=== PATIENT | male | born 2000 | race Caucasian/White ===

== ENCOUNTER 2019-10-07 15:36 | Emergency (ER) | payer MEDICAID, SELFPAY ==
[2019-10-07 15:40] VITALS: BP 134/67; PULSE 86; TEMP 36.7; O2SAT 99
--- NOTE | 2019-10-07 15:47 | ED.GENADUL_ITS ---
Discharge Plan Disposition Patient Disposition: HOME Condition: Stable Discharge Details Chief Complaint: Sorethroat Clinical Impression: Pharyngitis Primary Care Provider: Alex Downey ED Provider: Vitaliy Jernigan Home Meds and New Rx's Prescriptions: New amoxicillin-pot clavulanate [Augmentin] 875-125 mg tablet 1 tab PO BID Qty: 14 RF: 0 Discharge Instructions Instructions: Pharyngitis (ED) Additional Instructions: if symptoms persist next week follow up with your primary care provider if you have severe worsening pain, inability to swallow liquids or difficulty breathing return to the emergency department Medical Decision Making 19 yo male comes in with right posterior pharynx pain without dyspnea or difficulty swallowing for 3 days. Denies fevers, has had chills. HE denies rashes, vomit, headaches. Has no submandibular swelling, midline uvula, no pain over hyoid or restricted neck movements, no findings to suggest rpa, canal boat captain, or epiglotitis. His left tonsil is normal but right tonsil is erythematous with exudates. Negative strep, but given findings will tx for bacterial pharyngitis. Advised f/u with pcp and return precautions given Differential Diagnosis Differential Diagnosis: strep pharyngitis, viral pharyngitis, rpa, canal boat captain, epiglotitis HPI General Mode of arrival: ambulatory . Date/Time Provider Initiated Documentation: 10/07/19 15:43 . Limitations to Documentation: no limitations . Information obtained by: patient . History of Present Illness 19 year old M presents to the emergency department with the chief complaint of sore throat, Patient started experiencing this day(s) (3) and it has been constant. No relieving factors improve symptom(s), No exacerbating factors reported . Related Data Home Medications Medication Instructions Recorded Confirmed amoxicillin-pot clavulanate 1 tab PO BID #14 tab 10/07/19 [Augmentin] Previous Rx's Medication Instructions Recorded amoxicillin-pot clavulanate 1 tab PO BID #14 tab 10/07/19 [Augmentin] Allergies Allergy/AdvReac Type Severity Reaction Status Date / Time No Known Allergies Allergy Unverified 10/07/19 15:44 General Stated Complaint: Sorethroat LINDA: 4 Review of Systems All systems reviewed & are unremarkable except as noted in HPI and below Constitutional Constitutional: Denies weakness ENT Ears, Nose, Mouth, and Throat: Denies change in voice Cardiovascular Cardiovascular: Denies chest pain and Denies dyspnea Respiratory Respiratory: Denies cough and Denies dyspnea Gastrointestinal Gastrointestinal: Denies nausea and Denies vomiting Genitourinary Genitourinary: Denies dysuria Musculoskeletal Musculoskeletal: Denies joint swelling Integumentary/Breasts Skin/Breast: Denies rash Neurologic Neurologic: Denies weakness Endocrine Endocrine: Denies cold intolerance and Denies heat intolerance [facility] Medical History (Updated 10/07/19 @ 16:05 by Vitaliy Jernigan MD) Fracture of left upper extremity age 3 Strabismus Family History Mother Substance abuse Healthy adult Mental disorder Father Substance abuse Healthy adult GRANDPARENT Substance abuse Essential hypertension Hyperlipidemia Social History Smoking/Tobacco Use Status: Never Alcohol Intake: never Drug use: Never Substance use type: does not use Do you feel safe at home: Yes Do you feel safe in your relationship?: Yes Exam Const General: no acute distress Orientation: alert HENMT Head: normal to inspection Ears: external ears normal General nose exam: external nose normal Mouth: moist mucous membranes Eyes General: appearance normal, both eyes and all related structures Neck Neck: normal visual inspection Resp Effort & Inspection: normal respiratory effort and able to speak in complete sentences Cardio Rate: regular rate Skin General skin exam: no rashes or lesions noted Neuro General: alert and oriented x3 Extrem General: normal to inspection Psych Mental Status: mental status grossly normal Course Vital Signs Vital signs: Vital Signs Temperature 36.7 C 10/07/19 15:40 Pulse 86 10/07/19 15:40 Blood Pressure 134/67 10/07/19 15:40 Pulse Oximetry 99 10/07/19 15:40 Temperature 36.7 C 10/07/19 15:40 Pulse 86 10/07/19 15:40 Respiratory Effort Non-Labored 10/07/19 15:43 Blood Pressure 134/67 10/07/19 15:40 Blood Pressure Position Sitting 10/07/19 15:40 Pulse Oximetry 99 10/07/19 15:40 Oxygen Delivery Method Room Air 10/07/19 15:40 Oxygen Flow Rate 0 10/07/19 15:40 Pain Level 7 10/07/19 15:40
== END 2019-10-07 16:13 | disposition home or self-care (01) ==
LOC: ER 16:14
PROVIDERS: Emergency Provider Emergency Medicine; PCP Family Medicine
DX: J02.0 Streptococcal pharyngitis (principal)
CPT/HCPCS: 87880; 99282; 87081; 99283

== ENCOUNTER 2021-03-05 20:31 | Emergency (ER) | payer MEDICAID, SELFPAY ==
[2021-03-05 20:36] VITALS: BP 133/77; PULSE 115; RESP 18; TEMP 36.6; O2SAT 100
[2021-03-05 20:48] VITALS: TEMP 39.5
--- NOTE | 2021-03-05 20:48 | ED.GENADUL_ITS ---
Discharge Plan Disposition Patient Disposition: HOME Condition: Improving Discharge Details Clinical Impression: Fever, Brain lesion Primary Care Provider: Alex Downey ED Provider: Ashleigh Tinsley Home Meds and New Rx's Prescriptions: No Action sertraline 100 mg tablet 150 mg PO DAILY RF: 0 Discharge Instructions Instructions: Fever in Adults (ED) Additional Instructions: Follow up with primary care provider in 3-5 days. Return to ED sooner if any worsening or concerns. Increase oral fluids. Please take Tylenol or Ibuprofen with food every 4-6 hours as needed for pain and swelling. Today's a CT of your head shows an extra axial cystic lesion along the left frontal lobe. This has probably been there for a long time. No bleeding noted on the CTs.. Please return to the ER or be seen sooner for any worsening, vomiting, inability to move your head or unable to keep the fever down with Tylenol and ibuprofen. We did add a Lyme and tick panel onto your labs which is pending at this time. Please have your primary care provider follow-up with this Referrals: Alex Downey [Primary Care Provider] - Sintia Shirley MD [ [facility] STAFF PHYSICIAN] - 2 weeks (Extra-axial Cystic lesion left Frontal convexity questionable arachnoid cyst) Discharge Data Discharge Date/Time-TO BE ENTERED AT DEPARTURE: 03/06/21 01:00 Medical Decision Making 20-year-old male presents the ER chief complaint of fever which began 48?72 hours ago. He reports having a thermometer at home did not take temperature but does endorse myalgias and chills. He also states he has gotten posterior neck tenderness when flexing the neck. Mild bilateral ear tenderness and some anterior cervical lymphadenopathy, posterior oropharynx slightly erythemic no exudate noted. He also reports some mild dysuria. Negative abdominal pain no nausea vomiting. Last took 800 mg ibuprofen at approximately noon today. Only past medical history is depression he takes sertraline for. At this time work-up ordered including CBC, CMP, lactate, urinalysis, blood cultures x2. Strep throat Covid test. Differential diagnosis includes but not limited to strep throat, COVID-19, pharyngitis, meningitis, UTI No leukocytosis, lactate is 2.1 CMP is largely within normal limits, glucose 128 urinalysis shows 15 ketones 1.0 urobilinogen no evidence for UTI Covid is negative. Lyme panel added on and strep swab is pending at this time. 2310: Spoke with mri technician regarding head CT there is a left frontal abnormality a a CTA to further evaluate was added on to existing exam while patient is over in radiology at this time. No documentation noting a previous head injury. Patient does have a right lazy eye noted on exam. Attempted to call mother no answer, father is at bedside. I did discuss the CT findings with patient and father who verbalized understanding they were not aware that there was a cystic type lesion noted. Patient reports feeling better is hemodynamically stable. At this time no source found for patient's fever and symptoms. ER attending Dr. Jernigan was able to eval patient at my request for possible need for lumbar puncture. At this time patient has no nuchal rigidity and is moving head without difficulty lumbar puncture not performed at this time. Plan is to have patient follow-up with outpatient neurology Dr. Shirley regarding CT findings. Discussed return instructions, verbalized understanding. This text was generated using [employer] dictation system, please disregard any oddities of phrase or misspellings. HPI General Mode of arrival: ambulatory . Date/Time Provider Initiated Documentation: 03/05/21 20:39 . Limitations to Documentation: no limitations . Information obtained by: patient . HPI Narrative: 20-year-old male presents the ER chief complaint of fever which began 48?72 hours ago. He reports having a thermometer at home did not take temperature but does endorse myalgias and chills. He also states he has gotten posterior neck tenderness when flexing the neck. Mild bilateral ear tenderness and some anterior cervical lymphadenopathy, posterior oropharynx slightly erythemic no exudate noted. He also reports some mild dysuria. Negative abdominal pain no nausea vomiting. Last took 800 mg ibuprofen at approximately noon today. Only past medical history is depression he takes sertraline for. Related Data Home Medications Medication Instructions Recorded Confirmed sertraline 150 mg PO DAILY 03/05/21 03/05/21 Allergies Allergy/AdvReac Type Severity Reaction Status Date / Time No Known Allergies Allergy Unverified 03/05/21 20:40 General Stated Complaint: Fever LINDA: 3 Review of Systems Narrative: Constitutional: Negative for weight loss, alert and oriented, well groomed, normal body habitus, appears uncomfortable. HEENT: Denies trauma, blurry vision, nasal discharge, sore throat, trouble swallowing. Positive posterior headache posterior neck tenderness with neck flexion Chest: Denies chest pain, palpitations, irregular rhythm, hypertension. Respiratory: Denies Shortness of breath, cough, hemoptysis. GI: Denies abdominal pain, nausea, vomiting, diarrhea, constipation. : Denies hematuria, flank pain, rectal bleeding. Positive dysuria Neuro: Denies dizziness, blurry vision, weakness, syncope, or facial numbness. Hematologic: Denies easy bruising, intolerance to heat or , hair loss. [facility] Medical History Depression Fracture of left upper extremity age 3 Strabismus Family History Mother Substance abuse Healthy adult Mental disorder Father Substance abuse Healthy adult GRANDPARENT Substance abuse Essential hypertension Hyperlipidemia Social History Smoking/Tobacco Use Status: Never Smoking risk assessment performed?: Yes Alcohol Intake: current Alcohol Intake frequency: holidays/special occasions only Drug use: Daily Substance use type: marijuana Do you feel safe at home: Yes Do you feel safe in your relationship?: Yes Exam Narrative Exam Narrative: Constitutional: Alert and oriented x3. Appears stated age. Normal body habitus. Head: Normocephalic, no trauma. Eyes: Pupils PERRLA, Red reflex noted, EOM's intact. Eyelids symmetrical without lesions, discharge, or swelling. ENT: Bilateral TM's slightly erythemic, erythematous ear canal external ear normal to inspection, no mastoid TTP, swelling, or erythema, Nasal turbinates WNL, no nasal discharge. Normal dentition, Posterior pharynx erythemic, no exudate. Neck: Posterior neck tenderness with flexion. Chest: RRR, Normal S1, S2, distal pulses intact. Resp: Lungs clear to auscultation bilaterally, no wheezes, rales, or rhonchi. Abdomen: Soft, nontender to palpation all 4 quadrants. Musculoskeletal: Normal gait, 5/5 strength to all four extremities. Skin: No suspicious rashes or lesions. Capillary refill less than 2 sec. Neurologic: Cranial nerves II-XII intact. Alert and oriented x 3. DTR's intact. Hematologic/Lymphatic: No ecchymosis, no lymphadenopathy. Course Vital Signs Vital signs: Vital Signs Temperature 36.6 C 03/05/21 20:36 Pulse 115 H 03/05/21 20:36 Respiratory Rate 18 03/05/21 20:36 Blood Pressure 133/77 03/05/21 20:36 Pulse Oximetry 100 03/05/21 20:36 Temperature 36.6 C 03/05/21 20:36 Temperature Source Skin 03/05/21 20:36 Pulse 115 H 03/05/21 20:36 Respiratory Rate 18 03/05/21 20:36 Respiratory Effort Non-Labored 03/05/21 20:41 Blood Pressure 133/77 03/05/21 20:36 Pulse Oximetry 100 03/05/21 20:36 Pain Level 8 03/05/21 20:36
[2021-03-05 21:28] LABS: Bilirubin Negative (Negative); Blood Negative (Negative); Clarity Clear (Clear); Glucose Negative (Negative); Ketones 15 mg/dL (Negative); Leukocyte Esterase Negative (Negative); Nitrite Negative (Negative); Specific Gravity 1.025 (1.005-1.025)
[2021-03-05] MEDS: ACETAMINOPHEN 1,000 MG/100 ML BTL 400 MG IVPB (21:30)
[2021-03-05 21:44] LABS: Source Nasal/Nares
[2021-03-05 21:51] LABS: Abs Immature Grans 0.02 10^3/uL (0.0-0.06); Absolute Basophil Count 0.03 10^3/uL (0.0-0.2); Absolute Lymphocyte Count 0.76 10^3/uL (1.2-3.4); Absolute Monocyte Count 0.73 10^3/uL (0.1-0.8); Absolute Neutrophil Count 5.83 10^3/uL (1.2-6.7); Basophils % 0.4; HCT 45.5 % (40.0-50.0); HGB 14.8 g/dL (13.5-17.5); Immature Grans % 0.3; Lymphocytes % 10.3; MCH 29.7 pg (27.0-33.0); MCHC 32.5 % (32.0-36.0); MCV 91.4 fL (80-95); MPV 11.9 fL (8.0-11.0); Monocytes % 9.9; Neutrophils % 79.1; Nucleated RBC 0 %; Platelet Count 177 10^3/uL (130-400); RBC 4.98 10^6/uL (4.36-5.78); RDW 12.3 % (11.8-14.1); RDW-SD 41.4 fL; WBC 7.37 10^3/uL (4.4-10.8)
[2021-03-05 21:52] LABS: Lactate 2.1 mmol/L (0.6-1.4)
[2021-03-05 22:01] LABS: ALT 26 U/L (16-63); AST 23 U/L (15-37); Albumin 3.6 g/dL (3.4-5.0); Alkaline Phosphatase 71 U/L (46-116); BUN 10 mg/dL (7-18); Bilirubin, Total 0.5 mg/dL (0.2-1.0); Calcium 8.9 mg/dL (8.5-10.1); Chloride 103 mmol/L (98-107); Glucose 128 mg/dL (74-106); Magnesium 1.9 mg/dL (1.8-2.4); Potassium 3.9 mmol/L (3.5-5.1); Sodium 138 mmol/L (136-145); Total Protein 7.4 g/dL (6.4-8.2)
--- NOTE | 2021-03-05 22:30 | DI.CT_ITS ---
Exam(s) CT HEAD CERVICAL SPINE WO EXAM: CT HEAD CERVICAL SPINE WO CLINICAL HISTORY: RAM, Neck Pain, Fever. TECHNIQUE: Imaging Protocol: Axial computed tomography images with coronal and sagittal reformatted images were created and reviewed COMPARISON: No exams were available for comparison FINDINGS: BRAIN: There are no skull fractures nor fluid in the visualized paranasal sinuses. There is no evidence of intracranial hemorrhage, intra or extra-axial. However, and in the left fron lai region there is an extra-axial CSF density collection which measures approximately 4.8 cm wide by 2.2 cm AP by 4 cm oblique. This is associated with smooth erosion of the inner table of the skull a nd is probably an arachnoid cyst. Ventricles are not enlarged or shifted. No blood within the ventricular system nor within the basal cisterns. CERVICAL SPINE: There is no evidence of fracture nor listhesis. No significant prevertebral soft tissue swelling. There is no significant facet joint malalignment. No significant osseous lesions evident. IMPRESSION: No evidence of intracranial hemorrhage. No skull fractures. However, there is an abnormal 4.8 x 2.2 x 4 cm CSF density extra-axial collection over the left frontal lobe region which is associated with smooth erosion of the inner table of the skull and is most probably an arachnoid cyst. Follow-up MR I recommended. No evidence of cervical spine fracture, malalignment, nor acute compromise of the cervical spinal can al. RADIATION DOSE DELIVERED: 1,400.79mGy.cm Total DLP DATA REPOSITORY: All CT scans at this facility are submitted to the National Radiology Data Registry (NRDR) Dose Index Registry (DIR) with the [employer] (ACR). RADIATION OPTIMIZATION: All CT scans at this facility use at least one of these dose optimization te chniques: automated exposure control; mA and/or kV adjustment per patient size (includes targeted exa ms where dose is matched to clinical indication); or iterative reconstruction.
[2021-03-05 22:32] VITALS: PULSE 78; RESP 16; TEMP 39.3; O2SAT 95
[2021-03-05] MEDS: Normal Saline 1,000 ML 1000 ML IV (22:41)
[2021-03-05 22:43] LABS: COVID-19 PCR Negative (Negative)
--- NOTE | 2021-03-05 22:47 | DI.RAD_ITS ---
Exam(s) XR PORTABLE CHEST AP EXAM: XR PORTABLE CHEST AP CLINICAL HISTORY: Fever, PUI. TECHNIQUE: 2D digital imaging was performed. COMPARISON: No exams were available for comparison FINDINGS: Heart size is normal. The mediastinum is not widened. Lungs are clear. No infiltrates nor obvious pleural effusions. IMPRESSION: No acute pulmonary findings on this single AP portable view of the chest. DATA REPOSITORY: RADIATION DOSE DELIVERED: All CT scans at this facility use at least one of these dose optimization techniques: automated exposure control; mA and/or kV adjustment per patient size (includes targeted e xams where dose is matched to clinical indication); or iterative reconstruction.
--- NOTE | 2021-03-05 23:00 | DI.CT_ITS ---
Exam(s) CT BRAIN CTA EXAM: CT BRAIN CTA CLINICAL HISTORY: Abnormal Head CT, Fever. TECHNIQUE: Imaging Protocol: Axial CT angiography was performed with multi-slice acquisition and mu lti-planar and/or 3D reconstructions. IV Contrast Dose =100 cc CONTRAST MATERIAL: Intravenous: Omnipaque 350 Contrast volume:structured data in ml COMPARISON: CT CT HEAD CERVICAL SPINE WO from 03/05/2021 FINDINGS: CTA Brain With: ANTERIOR CIRCULATION: Internal carotid arteries are patent in the skull base-carotid canals as well as within the cavernous sinuses. Supraclinoid aspects are patent. Middle cerebral arteries are patent. A1 segments are pa tent as are anterior cerebral arteries. There is no evidence of aneurysm at the level of the anterio r communicating artery. POSTERIOR CIRCULATION: At the skull base both vertebral arteries contribute to the formation of the basilar artery. Basilar Artery: Patent. However, distally the last vessel seen coming off of basilar artery at the s uperior cerebellar arteries. The posterior cerebral arteries are fed by posterior communicating kassandra kayla on both sides the [id number]. Consistent with persistent circulation. There is no evidence of aneurysm at the tip of the basilar artery. VISUALIZED BRAIN: There is a CSF density extra-axial collection over the left frontal lobe region measuring approximate ly 4 x 1.8 x 1.2 cm and associated with smooth erosion of the inner table of the skull of this level. Consistent with probable arachnoid cyst. There is no obvious vascular malformation. IMPRESSION: 1. No large vessel stenosis or occlusion 2. Extra-axial collection over the left frontal lobe measuring approximately 3.9 x 1.8 x 1.2 cm, prob ably an arachnoid cyst. This is associated with smooth erosion of the inner table of the skull above this level. Follow-up MRI is recommended. Also recommend follow-up MRA. 3. RADIATION DOSE DELIVERED: 1,143.06mGy.cm Total DLP 1,143.06mGy.cm Total DLP DATA REPOSITORY: All CT scans at this facility are submitted to the National Radiology Data Registry (NRDR) Dose Index Registry (DIR) with the [employer] (ACR). RADIATION OPTIMIZATION: All CT scans at this facility use at least one of these dose optimization te chniques: automated exposure control; mA and/or kV adjustment per patient size (includes targeted exa ms where dose is matched to clinical indication); or iterative reconstruction.
[2021-03-05] MEDS: Omnipaque 350 MG/ML 100 ML BTL IJ (23:22)
--- NOTE | 2021-03-05 23:23 | DI.VRAD_ITS ---
PROCEDURE INFORMATION: Exam: CT Head Without Contrast Exam date and time: 03/05/2021 10:39 PM Age: 20 years old Clinical indication: Headache; Neck pain; Patient HX: RAM, fever TECHNIQUE: Imaging protocol: Computed tomography of the head without contrast. Other technique: STROKE PROTOCOL was implemented. COMPARISON: No relevant prior studies available. FINDINGS: Brain: There is extra-axial cystic appearing lesion along the left frontal convexity measuring 4.6 cm x 1.8 cm, possibly an arachnoid cyst. Unremarkable white matter. No hemorrhage. No mass effect. Cerebral ventricles: No ventriculomegaly. Paranasal sinuses: Visualized sinuses are unremarkable. No fluid levels. Mastoid air cells: Visualized mastoid air cells are well aerated. Bones/joints: Unremarkable. No acute fracture. Soft tissues: Unremarkable. IMPRESSION: 1. No evidence for acute intracranial abnormality. 2. An extra-axial cystic appearing lesion along the left frontal convexity measuring 4.6 cm x 1.8 cm, possibly an arachnoid cyst. ASSESSMENT: ASPECTS ([place] Stroke Program Early CT Score) is 10. PROCEDURE INFORMATION: Exam: CT Cervical Spine Without Contrast Exam date and time: 03/05/2021 10:39 PM Age: 20 years old Clinical indication: Headache; Neck pain; Patient HX: RAM, fever TECHNIQUE: Imaging protocol: Computed tomography images of the cervical spine without contrast. COMPARISON: No relevant prior studies available. FINDINGS: Bones/joints: No acute fracture. Normal alignment. Discs/Spinal canal/Neural foramina: The disc spaces are preserved. No significant degenerative changes. Lungs: The visualized lung apices are clear. Soft tissues: The soft tissues of the neck are unremarkable. IMPRESSION: No evidence for cervical spine fracture. Dictated and Authenticated by: Clyde Tamez MD. Ordering:AQUILINO Sotelo MD
--- NOTE | 2021-03-06 00:20 | DI.VRAD_ITS ---
PROCEDURE INFORMATION: Exam: CT Angiography Head With Contrast, Arteriography Exam date and time: 03/05/2021 11:10 PM Age: 20 years old Clinical indication: Pain and abnormal findings; Abnormal CT of the head; Patient HX: Abnormal head wo CT; Fever, headache; Additional info: Verbal from er per provider TECHNIQUE: Imaging protocol: Computed tomography angiography of the head with contrast. Exam focused on the arteries. 3D rendering (Not supervised by radiologist): MIP and/or 3D reconstructed images were created by the technologist. COMPARISON: CT HEAD CERVICAL SPINE WO 03/05/2021 11:04 PM FINDINGS: ANTERIOR CIRCULATION: Right internal carotid artery: Unremarkable. Intracranial segment is patent with no significant stenosis. No aneurysm. Right middle cerebral artery: Unremarkable. No occlusion or significant stenosis. No aneurysm. Right anterior cerebral artery: Unremarkable. No occlusion or significant stenosis. No aneurysm. Left internal carotid artery: Unremarkable. Intracranial segment is patent with no significant stenosis. No aneurysm. Left middle cerebral artery: Unremarkable. No occlusion or significant stenosis. No aneurysm. Left anterior cerebral artery: Unremarkable. No occlusion or significant stenosis. No aneurysm. POSTERIOR CIRCULATION: Right vertebral artery: Unremarkable. No occlusion or significant stenosis. No aneurysm. Left vertebral artery: Unremarkable. No occlusion or significant stenosis. No aneurysm. Basilar artery: Unremarkable. No occlusion or significant stenosis. No aneurysm. Right posterior cerebral artery: Unremarkable. No occlusion or significant stenosis. No aneurysm. Left posterior cerebral artery: Unremarkable. No occlusion or significant stenosis. No aneurysm. Brain: There is a 3.9 x 1.8 x 1.2 cm simple fluid-containing lesion in the left frontal extra-axial space, which may represent an arachnoid cyst. There is mild associated osseous thinning and bony remodeling suggestive of a chronic/congenital process. No midline shift. Cerebral ventricles: No ventriculomegaly. Bones/joints: No acute fracture. Soft tissues: Unremarkable. IMPRESSION: 1. No large vessel stenosis or occlusion. 2. 3.9 cm fluid-containing lesion in the left frontal extra-axial space likely representing an arachnoid cyst. Dictated and Authenticated by: Natalia Davis MD. Ordering:AQUILINO Sotelo MD
--- NOTE | 2021-03-06 00:22 | DI.VRAD_ITS ---
PROCEDURE INFORMATION: Exam: XR Chest Exam date and time: 03/05/2021 11:33 PM Age: 20 years old Clinical indication: Patient HX: Fever, headache TECHNIQUE: Imaging protocol: XR of the chest. Views: 1 view. COMPARISON: CT HEAD CERVICAL SPINE WO 03/05/2021 11:04 PM FINDINGS: Lungs: No consolidation. Pleural spaces: Unremarkable. No pleural effusion. No pneumothorax. Heart/Mediastinum: Unremarkable. No cardiomegaly. Bones/joints: Unremarkable. IMPRESSION: No acute findings. Dictated and Authenticated by: Natalia Davis MD. Ordering:AQUILINO Sotelo MD
[2021-03-06 00:37] VITALS: BP 112/63; PULSE 86; RESP 16; TEMP 37.1; O2SAT 97
[2021-03-07 12:01] LABS: Lyme Ab w Rflx to Lyme Confirm Negative (Negative)
--- NOTE | 2021-03-08 14:00 | PDOC.ERCMPRO ---
- If Service Date Differs Date of service: 03/08/21 Time of Service: 14:00 Care Management Progress Note Kaden is seen in the ED on 03/05/2021 for a fever. Diagnostic imaging reveals that he has a cystic brain lesion. At the request of ED provider, CM coordinates a referral to neurology.
[2021-03-08 20:12] LABS: Anaplasma phagocytophilum Negative (Negative); B. miyamotoi PCR Negative (Negative); Babesia divergens/MO-1 Negative (Negative); Babesia duncani Negative (Negative); Babesia microti Negative (Negative); Ehrlichia chaffeensis Negative (Negative); Ehrlichia ewingii/canis Negative (Negative); Ehrlichia muris eauclairensis Negative (Negative)
== END 2021-03-06 01:00 | disposition home or self-care (01) ==
PROVIDERS: Emergency Provider Registered Nurse Emergency; PCP Family Medicine
DX: R50.9 Fever, unspecified (principal); R90.0 Intracranial space-occupying lesion found on diagnostic imaging of central nervous system; M79.10 Myalgia, unspecified site; Z20.89 Contact with and (suspected) exposure to other communicable diseases; Z03.818 Encounter for observation for suspected exposure to other biological agents ruled out
CPT/HCPCS: 36415; 70496; 80053; 87040; 87635; 87798; 87880; 96361; 96365; 99285; 70450; 71045; 72125; 81003; 83605; 83735; 85025; 86618; 87081; 99284; J0131; J3490

== ENCOUNTER 2023-02-21 10:51 | Emergency (ER) | payer MEDICAID, SELFPAY ==
[2023-02-21 10:54] VITALS: BP 158/77; PULSE 141; RESP 20; TEMP 36.5; O2SAT 96
--- NOTE | 2023-02-21 11:05 | ED.GENADUL_ITS ---
Discharge Plan Disposition Patient Disposition: Home Condition: Stable Discharge Details Clinical Impression: Suicidal ideations Primary Care Provider: Alex Downey ED Provider: Ashleigh Tinsley Home Meds and New Rx's Prescriptions: No Action sertraline 100 mg tablet 150 mg PO DAILY Patient Comments: stopped taking 1 year ago 02/21/23 CT Discharge Instructions Instructions: Depression (ED), Help Prevent Suicide (ED) Additional Instructions: Follow up as instructed by [facility] services. Please call them or return to ED for any return of suicidal ideations. Follow up with primary care provider in 1-2 days. Return to ED sooner if any worsening or concerns. Increase oral fluids. Referrals: [facility] [Outside] - 1 day Alex Downey [Primary Care Provider] - 1 day Medical Decision Making 22-year-old male presents to the ER with suicidal ideation, anxiety and crying. He reports that he has thoughts to hang himself with a belt, I keep looking at it and thinking about it. He reports that he attempted suicide by hanging couple years ago. He is currently tearful, crying and appears very anxious grabbing at his head. Patient denies doing anything over the last couple of days to harm himself he endorses marijuana denies any illicit drugs or alcohol. Parents are at bedside. Was given 1 mg Lorazepam PO. RK cabrera, patient medically cleared at this time. 1345: [facility] psych liason here at for patient eval. 1437: Patient to have a safety plan with parents according to ROCK Bernardo, patient to hand over all his belts and call in for daily safety checks, close follow up with PCP for med management and outpatient therapy. I agree with plan and feel that this is reasonable at this time. Patient discharged into the care of his parents. Patient appears much less anxious and less upset upon discharge. This text was generated using [employer] system, please disregard any oddities of phrase or misspellings. Medical Records Medical records reviewed: Yes I reviewed the patient's medical records. Lab Data Lab results reviewed: Yes I reviewed the patient's lab results. Labs: Laboratory Tests Range/Units 02/21/23 02/21/23 02/21/23 12:03 12:03 12:03 WBC (4.4-10.8) 10^3/uL 15.07 H RBC (4.36-5.78) 10^6/uL 4.87 Hgb (13.5-17.5) g/dL 14.9 Hct (40.0-50.0) % 43.6 MCV (80-95) fL 90 MCH (27.0-33.0) pg 30.6 MCHC (32.0-36.0) % 34.2 RDW (11.8-14.1) % 12.3 Plt Count (130-400) 10^3/uL 259 MPV (8.0-11.0) fL 11.2 H Immature Gran % 0.3 Neutrophils % 79.1 Lymphocytes % 15.5 Monocytes % 4.6 Eosinophils % 0.2 Basophils % 0.3 Nucleated RBC % (0.0-0.3) % 0.0 Absolute Neutrophils (1.2-6.7) 10^3/uL 11.92 H Absolute Lymphocytes (1.2-3.4) 10^3/uL 2.34 Absolute Monocytes (0.1-0.8) 10^3/uL 0.69 Absolute Eosinophils (0.0-0.7) 10^3/uL 0.03 Absolute Basophils (0.0-0.2) 10^3/uL 0.05 Sodium (136-145) mmol/L 131 L Potassium (3.5-5.1) mmol/L 3.4 L Chloride (98-107) mmol/L 109 H Carbon Dioxide (21.0-32.0) mmol/L 24.5 Anion Gap (3-11) mmol/L -2.5 L BUN (7-18) mg/dL 13 Creatinine (0.70-1.30) mg/dL 1.0 Est GFR (CKD-EPI 2020) (mL/min/1.73m2) 108.46 Glucose (74-106) mg/dL 110 H Calcium (8.5-10.1) mg/dL 8.8 Total Bilirubin (0.2-1.0) mg/dL 1.0 AST (15-37) U/L 9 L ALT (16-63) U/L 17 Alkaline Phosphatase (46-116) U/L 74 Total Protein (6.4-8.2) g/dL 7.6 Albumin (3.4-5.0) g/dL 4.1 TSH (0.36-3.74) uIU/mL 1.07 Salicylates (<2.8) mg/dL 2.8 Acetaminophen (10-30) ug/mL < 2 Ethyl Alcohol (<10) mg/dL < 3.0 HPI General Mode of arrival: ambulatory . Date/Time Provider Initiated Documentation: 02/21/23 11:00 . Limitations to Documentation: no limitations . Information obtained by: patient, RN notes reviewed and old records reviewed . HPI Narrative: 22-year-old male presents to the ER with suicidal ideation, anxiety and crying. He reports that he has thoughts to hang himself with a belt, I keep looking at it and thinking about it. He reports that he attempted suicide by hanging couple years ago. He is currently tearful, crying and appears very anxious grabbing at his head. Patient denies doing anything over the last couple of days to harm himself he endorses marijuana denies any illicit drugs or alcohol. Related Data Home Medications Medication Instructions Recorded Confirmed sertraline 100 mg tablet 150 mg PO DAILY 03/05/21 03/05/21 Allergies Allergy/AdvReac Type Severity Reaction Status Date / Time No Known Allergies Allergy Unverified 02/21/23 10:58 General Stated Complaint: PsychEval LINDA: 2 Review of Systems All systems reviewed & are unremarkable except as noted in HPI and below Psychiatric Psychiatric: Reports as per HPI, Reports anxiety, Reports depression, Reports panic attacks and Reports suicidal ideation PFSH All Active Problems (Updated 02/21/23 @ 14:41 by Ashleigh Tinsley NP) Pharyngitis (Acute) Fever (Acute) Brain lesion (Acute) Suicidal ideations (Acute) Medical History Depression Fracture of left upper extremity age 3 Strabismus Family History Mother Substance abuse Healthy adult Mental disorder Father Substance abuse Healthy adult GRANDPARENT Substance abuse Essential hypertension Hyperlipidemia Social History Smoking/Tobacco Use Status: Never Smoking risk assessment performed?: Yes Alcohol Intake: current Alcohol Intake frequency: holidays/special occasions only Drug use: Daily Substance use type: marijuana Do you feel safe at home: Yes Do you feel safe in your relationship?: Yes Exam Narrative Exam Narrative: Constitutional: Alert and oriented x3. Appears stated age. Normal body habitus. Head: Normocephalic, no trauma. Eyes: Pupils PERRL, Red reflex noted, EOM's intact. Eyelids symmetrical without lesions, discharge, or swelling. ENT: Bilateral TM's WNL, External ear normal to inspection, no mastoid TTP, swelling, or erythema, Nasal turbinates WNL, no nasal discharge. Normal dentition, Posterior pharynx WNL, no exudate. Chest: RRR, Normal S1, S2, distal pulses intact. Resp: Lungs clear to auscultation bilaterally, no wheezes, rales, or rhonchi. Abdomen: Soft, non-distended, Normoactive bowel sounds all 4 quads. Musculoskeletal: Normal gait, 5/5 strength to all four extremities. Skin: No suspicious rashes or lesions. Capillary refill less than 2 sec. Neurologic: Cranial nerves II-XII intact. Alert and oriented x 3. Motor: No deficits noted. Sensory: Intact bilaterally all 4 extremities. Reflexes: DTR's intact bilaterally.. Hematologic/Lymphatic: No ecchymosis, no lymphadenopathy. Psych: See below Psych Appearance: well kempt Mental Status: other (Crying) Speech and Movement: agitated and restless Mood: anxious mood, irritable mood and other (Crying) Affect: sad, anxious affect and irritable affect Attitude: belligerent Thought Content: suicidality Insight: fair Judgment: fair Course Vital Signs Vital signs: Vital Signs Temperature 36.5 C 02/21/23 10:54 Pulse 141 H 02/21/23 10:54 Respiratory Rate 20 02/21/23 10:54 Blood Pressure 158/77 H 02/21/23 10:54 Pulse Oximetry 96 02/21/23 10:54 Temperature 36.5 C 02/21/23 10:54 Temperature Source Temporal Artery Scan 02/21/23 10:54 Pulse 141 H 02/21/23 10:54 Respiratory Rate 20 02/21/23 10:54 Respiratory Effort Normal 02/21/23 10:57 Blood Pressure 158/77 H 02/21/23 10:54 Blood Pressure Position Sitting 02/21/23 10:54 Pulse Oximetry 96 06/14/23 10:54 Oxygen Delivery Method Room Air 02/21/23 10:54 Oxygen Flow Rate 0 02/21/23 10:54 Pain Level 0 02/21/23 10:54
[2023-02-21] MEDS: LORazepam 1 MG TAB PO (11:12)
[2023-02-21 12:11] LABS: Abs Immature Grans 0.05 10^3/uL (0.0-0.06); Absolute Eosinophil Count 0.03 10^3/uL (0.0-0.7); Absolute Lymphocyte Count 2.34 10^3/uL (1.2-3.4); Basophils % 0.3; Eosinophils % 0.2; HCT 43.6 % (40.0-50.0); HGB 14.9 g/dL (13.5-17.5); Immature Grans % 0.3; Lymphocytes % 15.5; MCH 30.6 pg (27.0-33.0); MCHC 34.2 % (32.0-36.0); MCV 90 fL (80-95); MPV 11.2 fL (8.0-11.0); Monocytes % 4.6; Neutrophils % 79.1; Platelet Count 259 10^3/uL (130-400); RBC 4.87 10^6/uL (4.36-5.78); RDW 12.3 % (11.8-14.1); RDW-SD 40.7 fL; WBC 15.07 10^3/uL (4.4-10.8)
[2023-02-21 12:13] LABS: Absolute Basophil Count 0.05 10^3/uL (0.0-0.2); Absolute Monocyte Count 0.69 10^3/uL (0.1-0.8); Absolute Neutrophil Count 11.92 10^3/uL (1.2-6.7)
[2023-02-21 12:43] LABS: ALT 17 U/L (16-63); AST 9 U/L (15-37); Albumin 4.1 g/dL (3.4-5.0); Alkaline Phosphatase 74 U/L (46-116); Anion Gap -2.5 mmol/L (3-11); BUN 13 mg/dL (7-18); CO2 24.5 mmol/L (21.0-32.0); Calcium 8.8 mg/dL (8.5-10.1); Chloride 109 mmol/L (98-107); Estimated GFR 108.46 (mL/min/1.73m2); Glucose 110 mg/dL (74-106); Potassium 3.4 mmol/L (3.5-5.1); Sodium 131 mmol/L (136-145); TSH (W/Ref FT4) 1.07 uIU/mL (0.36-3.74); Total Protein 7.6 g/dL (6.4-8.2)
[2023-02-21 12:44] LABS: Salicylate 2.8 mg/dL (<2.8)
[2023-02-21 12:46] LABS: ETHANOL BLOOD < 3.0 mg/dL (<10)
[2023-02-21 12:49] LABS: Acetaminophen < 2 ug/mL (10-30)
[2023-02-21] MEDS: Potassium Chloride 20 MEQ TABCR PO (13:26)
--- NOTE | 2023-02-21 14:54 | CMPROGNOTE_ITS ---
Date of service: 02/21/23 Time of Service: 14:54 Care Management Progress Note Progress Note Text Progress Note Text: DISPOSITION: Kaden is assessed by YVONNE Bernardo Crisis Screener. Kaden is able to enter into a safety plan with the support of his parents, so he is discharged home. He will follow up with his PCP, will do daily check-in calls with [facility] and has agreed to have his parents hold on to all belts and medications for safekeeping. [facility] will assist in getting Kaden enrolled in outpatient therapy. Status Status: Voluntary Reason for Wait: Outpatient Resources
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
== END 2023-02-21 14:49 | disposition home or self-care (01) ==
PROVIDERS: Emergency Provider Registered Nurse Emergency; PCP Family Medicine
DX: F41.9 Anxiety disorder, unspecified (principal); R45.851 Suicidal ideations
CPT/HCPCS: 36415; 80053; 80307; 99284; 80320; 80329; 81003; 84443; 85025

== ENCOUNTER 2023-02-27 17:05 | Emergency (ER) | payer MEDICAID, SELFPAY ==
[2023-02-27 17:07] VITALS: BP 138/84; PULSE 144; RESP 22; TEMP 36.8; O2SAT 100
[2023-02-27] MEDS: hydrOXYzine HCL 25 MG TAB 50 MG PO (17:20)
--- NOTE | 2023-02-27 18:44 | ED.GENADUL_ITS ---
Discharge Plan Disposition Patient Disposition: Home Discharge Details Clinical Impression: Anxiety Primary Care Provider: Alex Downey ED Provider: Ailyn Patino Home Meds and New Rx's Prescriptions: New hydroxyzine HCl 25 mg tablet 25 mg PO TID PRNQty: 14 0RF Continued sertraline 100 mg tablet 150 mg PO DAILY Patient Comments: stopped taking 1 year ago 02/21/23 CT trazodone 50 mg tablet 50 mg PO HS fluoxetine 20 mg tablet 20 mg PO DAILY Discharge Instructions Instructions: Anxiety (ED) Additional Instructions: Continue medications as previously directed Can add hydroxyzine 25 mg every 6-8 hours if needed for anxiety Referrals: Alex Downey [Primary Care Provider] - (Keep scheduled follow-up appointments) Discharge Data Discharge Date/Time-TO BE ENTERED AT DEPARTURE: 02/27/23 18:59 Medical Decision Making Patient presents with complaints of anxiety attack. Denies suicidality. Has good support with both parents at home and who are at bedside with him. He was given hydroxyzine 50 mg with resolution of his symptoms. He feels stable and ready for discharge to home Medical Records Medical records reviewed: Yes I reviewed the patient's medical records. HPI General Mode of arrival: ambulatory . Date/Time Provider Initiated Documentation: 02/27/23 17:06 . Information obtained by: patient and family (Parents) . HPI Narrative: Patient presents for reports of panic attack. Denies suicidality. Has been recently started on Prozac but has not had full benefits as of yet. He has follow-up appointments scheduled at the beginning of March. Medically with no new complaints Related Data Home Medications Medication Instructions Recorded Confirmed sertraline 100 mg tablet 150 mg PO DAILY 03/05/21 02/28/23 fluoxetine 20 mg tablet 20 mg PO DAILY 02/27/23 02/28/23 hydroxyzine HCl 25 mg tablet 25 mg PO TID PRN #14 tabs 02/27/23 02/28/23 trazodone 50 mg tablet 50 mg PO HS 02/27/23 02/27/23 Previous Rx's Medication Instructions Recorded hydroxyzine HCl 25 mg tablet 25 mg PO TID PRN #14 tabs 02/27/23 Allergies Allergy/AdvReac Type Severity Reaction Status Date / Time No Known Allergies Allergy Unverified 02/28/23 17:19 General Stated Complaint: Anxiety LINDA: 4 Review of Systems All systems reviewed & are unremarkable except as noted in HPI and below PFSH All Active Problems (Updated 02/28/23 @ 23:31 by Mansoor Magaña MD) Pharyngitis (Acute) Fever (Acute) Brain lesion (Acute) Suicidal ideations (Acute) Anxiety (Chronic) Anxiety (Chronic) Homicidal thoughts (Acute) Outbursts of anger (Acute) Arachnoid cyst (Acute) Medical History Depression Fracture of left upper extremity age 3 Strabismus Family History Mother Substance abuse Healthy adult Mental disorder Father Substance abuse Healthy adult GRANDPARENT Substance abuse Essential hypertension Hyperlipidemia Social History Smoking/Tobacco Use Status: Never Smoking risk assessment performed?: Yes Alcohol Intake: current Alcohol Intake frequency: holidays/special occasions only Drug use: Daily Substance use type: marijuana Do you feel safe at home: Yes Do you feel safe in your relationship?: Yes Exam Const General: no acute distress Orientation: alert HENMT Head: normal to inspection Ears: external ears normal General nose exam: external nose normal Mouth: moist mucous membranes Eyes General: appearance normal, both eyes and all related structures Neck Neck: normal visual inspection Resp Effort & Inspection: normal respiratory effort and able to speak in complete sentences Cardio Rate: regular rate Skin General skin exam: no rashes or lesions noted Neuro General: patient alert and patient oriented x3 Extrem General: normal to inspection Psych Mental Status: mental status grossly normal Course Vital Signs Vital signs: Vital Signs Temperature 36.8 C 02/27/23 17:07 Pulse 144 H 02/27/23 17:07 Respiratory Rate 02/27/23 17:07 Blood Pressure 138/84 02/27/23 17:07 Pulse Oximetry 100 02/27/23 17:07 Temperature 36.8 C 02/27/23 17:07 Temperature Source Skin 02/27/23 17:07 Pulse 144 H 02/27/23 17:07 Respiratory Rate 02/27/23 17:07 Blood Pressure 138/84 02/27/23 17:07 Blood Pressure Position Sitting 02/27/23 17:07 Pulse Oximetry 100 02/27/23 17:07 Oxygen Delivery Method Room Air 02/27/23 17:07 Oxygen Flow Rate 0 06/20/23 17:07
[2023-02-27] MEDS: hydrOXYzine HCL 25 MG TAB PO (18:55)
== END 2023-02-27 18:59 | disposition home or self-care (01) ==
PROVIDERS: Emergency Provider Nurse Practitioner Acute Care; PCP Family Medicine
DX: F41.9 Anxiety disorder, unspecified (principal); F41.0 Panic disorder [episodic paroxysmal anxiety]
CPT/HCPCS: 99283

== ENCOUNTER 2023-02-28 17:09 | Emergency (ER) | payer MEDICAID, SELFPAY ==
[2023-02-28] VITALS (21 sets, daily range): BP systolic 122–142; BP diastolic 64–84; PULSE 73–136; RESP 13–32; TEMP 36.6; O2SAT 99–100
--- NOTE | 2023-02-28 17:15 | DI.CT_ITS ---
Exam(s) CT HEAD WO/W EXAM: CT HEAD WO/W CLINICAL HISTORY: prior lesion on ct, increased anxiety, SI recent. TECHNIQUE: Imaging Protocol: Axial computed tomography images with coronal and sagittal reformatted images were created and reviewed. CONTRAST MATERIAL: Intravenous: Omnipaque 350 Contrast volume:100 ml COMPARISON: CT CT BRAIN CTA from 03/05/2021 FINDINGS: Ventricles and Extra axial spaces: Normal in size and morphology for the patient's age. Hemorrhage: None. Cerebral parenchyma: No change in previously noted high left frontal arachnoid cyst. No evidence of suspicious mass or infarct. Enhancement: No suspicious enhancement. Midline shift: None. Brainstem/Cerebellum: Normal. Calvarium: Normal. Visualized Paranasal sinuses/Mastoids: Clear. IMPRESSION: Stable left frontal rectal oil cyst. No acute abnormality. RADIATION DOSE DELIVERED: 1,682.8mGy.cm Total DLP DATA REPOSITORY: All CT scans at this facility are submitted to the National Radiology Data Registry (NRDR) Dose Index Registry (DIR) with the [employer] (ACR). RADIATION OPTIMIZATION: All CT scans at this facility use at least one of these dose optimization te chniques: automated exposure control; mA and/or kV adjustment per patient size (includes targeted exa ms where dose is matched to clinical indication); or iterative reconstruction.
--- NOTE | 2023-02-28 17:15 | RT.EKG_ITS ---
APPROVED REPORT Exam: Resting ECG Reason for Exam: spasm, pain Patient Location: E HR:99 bpm ECG Measurements Heart Rate 99 AXIS GA 123 P 66 QRSd 86 QRS 77 QT 334 T 33 QTc 430 Conclusion Sinus rhythm...normal P axis, V-rate 60- 99
[2023-02-28 17:31] LABS: Abs Immature Grans 0.05 10^3/uL (0.0-0.06); HCT 50.8 % (40.0-50.0); MCH 30.4 pg (27.0-33.0); MCHC 33.5 % (32.0-36.0); MCV 91 fL (80-95); MPV 11.3 fL (8.0-11.0); Platelet Count 356 10^3/uL (130-400); RBC 5.59 10^6/uL (4.36-5.78); RDW 12.4 % (11.8-14.1); RDW-SD 41.6 fL
[2023-02-28 17:45] LABS: Absolute Eosinophil Count 0.16 10^3/uL (0.0-0.7); Absolute Monocyte Count 0.96 10^3/uL (0.1-0.8); Absolute Neutrophil Count 9.28 10^3/uL (1.2-6.7); Diff Comment Manual Differential; RBC Morphology Normal
[2023-02-28 17:59] LABS: ALT 19 U/L (16-63); AST 12 U/L (15-37); Albumin 5.2 g/dL (3.4-5.0); Alkaline Phosphatase 90 U/L (46-116); Anion Gap 19.8 mmol/L (3-11); BUN 13 mg/dL (7-18); Bilirubin, Total 0.7 mg/dL (0.2-1.0); CO2 22.2 mmol/L (21.0-32.0); CREATININE 1.3 mg/dL (0.70-1.30); Calcium 10.7 mg/dL (8.5-10.1); Chloride 105 mmol/L (98-107); ETHANOL BLOOD < 3.0 mg/dL (<10); Estimated GFR 79.16 (mL/min/1.73m2); Glucose 119 mg/dL (74-106); Potassium 4.5 mmol/L (3.5-5.1); Sodium 147 mmol/L (136-145); Total Protein 9.6 g/dL (6.4-8.2)
[2023-02-28 18:00] LABS: Salicylate 3.8 mg/dL (<2.8)
[2023-02-28 18:03] LABS: Acetaminophen < 2 ug/mL (10-30)
[2023-02-28] MEDS: Midazolam 2 MG/2 ML VIAL 4 MG IVP (18:15)
[2023-02-28] MEDS: Normal Saline - Diluent 50 ML VIAL IV (18:33)
[2023-02-28] MEDS: Omnipaque 350 MG/ML 100 ML BTL IJ (18:34)
--- NOTE | 2023-02-28 19:25 | DI.VRAD_ITS ---
PROCEDURE INFORMATION: Exam: CT Head Without And With Contrast Exam date and time: 02/28/2023 6:36 PM Age: 22 years old Clinical indication: Other: Prior lesion on CT, increased anxiety, si recent TECHNIQUE: Imaging protocol: Computed tomography of the head without and with contrast. Radiation optimization: All CT scans at this facility use at least one of these dose optimization techniques: automated exposure control; mA and/or kV adjustment per patient size (includes targeted exams where dose is matched to clinical indication); or iterative reconstruction. Contrast material: OMNI 350; Contrast volume: 100 ml; Contrast route: INTRAVENOUS (IV); COMPARISON: CT HEAD CERVICAL SPINE WO 03/05/2021 11:04 PM FINDINGS: Brain: Stable 4.7 x 4.4 x 1.5 cm arachnoid cyst in the left frontal region. No suspicious intracranial mass, acute intracranial hemorrhage or evidence of acute ischemia. Cerebral ventricles: No ventriculomegaly. Paranasal sinuses: Visualized sinuses are unremarkable. No fluid levels. Mastoid air cells: Visualized mastoid air cells are well aerated. Bones/joints: Unremarkable. No acute fracture. Soft tissues: Unremarkable. IMPRESSION: No significant intracranial pathology. Stable 4.7 cm arachnoid cyst in the left frontal region Dictated and Authenticated by: Nestor Dumas MD. Ordering:MARKIE Max MD
--- NOTE | 2023-02-28 19:43 | W.ED.GENAD ---
Discharge Plan Disposition Patient Disposition: Home Condition: Stable Discharge Details Clinical Impression: Anxiety, Homicidal thoughts, Outbursts of anger, Arachnoid cyst Primary Care Provider: Alex Downey ED Provider: Mansoor Magaña Home Meds and New Rx's Prescriptions: Continued sertraline 100 mg tablet 150 mg PO DAILY Patient Comments: stopped taking 1 year ago 02/21/23 CT trazodone 50 mg tablet 50 mg PO HS fluoxetine 20 mg tablet 20 mg PO DAILY hydroxyzine HCl 25 mg tablet 25 mg PO TID PRNQty: 14 0RF Discharge Instructions Instructions: Anxiety (ED) Additional Instructions: Please follow-up with [facility] Call tomorrow. Follow safety plan that was established. Please contact your primary care physician to arrange follow-up. Return to the ER immediately for any worsening or new concerning symptoms. Referrals: [facility] [Outside] Alex Downey [Primary Care Provider] - Medical Decision Making 1950 --22-year-old male with history of anxiety, recently seen here for suicidal ideation and then again for anxiety, returns today with severe panic attack and carpal spasm. Ordered Versed IV for anxiety. Prior to administration, patient noted he was feeling better with de-escalation techniques provided by nursing. I am concerned about the patient's intermittent homicidality and labile behavior per family. Also concerned about intermittent suicidality as well as severe anxiety. I have denied established one-to-one patient observation and interim care plan. I have called [facility] for crisis evaluation. Of note, patient did have a lesion seen on CT of the head 02/28. He did not have follow-up for this lesion. I repeated head CT today and there has been no interval change in stable 4.7 cm arachnoid cyst in the left frontal region. 2211 --patient reassessed multiple times has remained stable. Patient seen by crisis screener who also spoke with the patient's family. A safety plan has been developed. Patient and family feel comfortable with safety plan as established. [facility] will be seeking placement for psychiatric treatment and will follow up with the patient. 2329 --repeat chemistry reviewed and anion gap resolved. Suspect secondary to spasm during panic attack. Usual customary discharge instructions were reviewed with the patient. He understands importance of timely follow-up and that he can return at any time should have worsening or new concerning symptoms. Lab Data Lab results reviewed: Yes I reviewed the patient's lab results. Labs: Laboratory Tests Range/Units 02/28/23 02/28/23 02/28/23 17:17 17:17 17:17 WBC (4.4-10.8) 10^3/uL 16.00 H RBC (4.36-5.78) 10^6/uL 5.59 Hgb (13.5-17.5) g/dL 17.0 Hct (40.0-50.0) % 50.8 H MCV (80-95) fL 91 MCH (27.0-33.0) pg 30.4 MCHC (32.0-36.0) % 33.5 RDW (11.8-14.1) % 12.4 Plt Count (130-400) 10^3/uL 356 MPV (8.0-11.0) fL 11.3 H Immature Gran % 0.0 Neutrophils % 58.0 Lymphocytes % 35.0 Monocytes % 6.0 Eosinophils % 1.0 Basophils % 0.0 Nucleated RBC % (0.0-0.3) % 0.0 Absolute Neutrophils (1.2-6.7) 10^3/uL 9.28 H Absolute Lymphocytes (1.2-3.4) 10^3/uL 5.60 H Absolute Monocytes (0.1-0.8) 10^3/uL 0.96 H Absolute Eosinophils (0.0-0.7) 10^3/uL 0.16 Absolute Basophils (0.0-0.2) 10^3/uL 0.00 RBC Morphology Normal Sodium (136-145) mmol/L 147 H Potassium (3.5-5.1) mmol/L 4.5 Chloride (98-107) mmol/L 105 Carbon Dioxide (21.0-32.0) mmol/L 22.2 Anion Gap (3-11) mmol/L 19.8 H BUN (7-18) mg/dL 13 Creatinine (0.70-1.30) mg/dL 1.3 Est GFR (CKD-EPI 2020) (mL/min/1.73m2) 79.16 Glucose (74-106) mg/dL 119 H Calcium (8.5-10.1) mg/dL 10.7 H Total Bilirubin (0.2-1.0) mg/dL 0.7 AST (15-37) U/L 12 L ALT (16-63) U/L 19 Alkaline Phosphatase (46-116) U/L 90 Total Protein (6.4-8.2) g/dL 9.6 H Albumin (3.4-5.0) g/dL 5.2 H TSH (0.36-3.74) uIU/mL 1.90 Salicylates (<2.8) mg/dL 3.8 Urine Opiates Screen (Negative) Urine Methadone Screen (Negative) Acetaminophen (10-30) ug/mL < 2 Ur Barbiturates Screen (Negative) Ur Tricyclics Screen (Negative) Ur Amphetamines Screen (Negative) U Benzodiazepines Scrn (Negative) Urine Cocaine Screen (Negative) Ur THC Screen (Negative) Ethyl Alcohol (<10) mg/dL < 3.0 Range/Units 02/28/23 02/28/23 19:20 23:01 WBC (4.4-10.8) 10^3/uL RBC (4.36-5.78) 10^6/uL Hgb (13.5-17.5) g/dL Hct (40.0-50.0) % MCV (80-95) fL MCH (27.0-33.0) pg MCHC (32.0-36.0) % RDW (11.8-14.1) % Plt Count (130-400) 10^3/uL MPV (8.0-11.0) fL Immature Gran % Neutrophils % Lymphocytes % Monocytes % Eosinophils % Basophils % Nucleated RBC % (0.0-0.3) % Absolute Neutrophils (1.2-6.7) 10^3/uL Absolute Lymphocytes (1.2-3.4) 10^3/uL Absolute Monocytes (0.1-0.8) 10^3/uL Absolute Eosinophils (0.0-0.7) 10^3/uL Absolute Basophils (0.0-0.2) 10^3/uL RBC Morphology Sodium (136-145) mmol/L 140 Potassium (3.5-5.1) mmol/L 3.3 L D Chloride (98-107) mmol/L 105 Carbon Dioxide (21.0-32.0) mmol/L 23.8 Anion Gap (3-11) mmol/L 11.2 H BUN (7-18) mg/dL 11 Creatinine (0.70-1.30) mg/dL 0.9 Est GFR (CKD-EPI 2020) (mL/min/1.73m2) 123.07 Glucose (74-106) mg/dL 100 Calcium (8.5-10.1) mg/dL 8.6 Total Bilirubin (0.2-1.0) mg/dL AST (15-37) U/L ALT (16-63) U/L Alkaline Phosphatase (46-116) U/L Total Protein (6.4-8.2) g/dL Albumin (3.4-5.0) g/dL TSH (0.36-3.74) uIU/mL Salicylates (<2.8) mg/dL Urine Opiates Screen (Negative) Negative Urine Methadone Screen (Negative) Negative Acetaminophen (10-30) ug/mL Ur Barbiturates Screen (Negative) Negative Ur Tricyclics Screen (Negative) Negative Ur Amphetamines Screen (Negative) Negative U Benzodiazepines Scrn (Negative) Positive A Urine Cocaine Screen (Negative) Negative Ur THC Screen (Negative) Positive A Ethyl Alcohol (<10) mg/dL HPI General Mode of arrival: wheelchair. Date/Time Provider Initiated Documentation: 02/28/23 17:13. Information obtained by: patient. HPI Narrative: 22-year-old male with history of anxiety and depression, here with chief complaint of severe anxiety attack. Patient notes anxiety started just prior to arrival. He is experiencing spasm of his hands secondary to anxiety. Symptoms are severe. Patient notes he has had anxiety intermittent over the past 5 years that he has been able to control with marijuana use. He states over the past 2 weeks nothing has been working. Patient notes he has not been forthcoming and has not sought care for psychiatric illness in the past. Patient does note intermittent thoughts of killing himself. He states he has a pole in his closet and has considered hanging himself. Patient also notes thoughts of jumping out of the window of the car as recently as today. Patient states he tries to be a good person because others perceive him as a good person but that he does not think of himself as a good person. Patient states that he has intermittent homicidal thoughts. He states when he gets angry at people including his coworkers he thinks about going ballistic and stabbing them. Patient notes he often feels this way when someone angers him. Dad notes that he has felt threatened himself at home recently and feels overwhelmed trying to provide care for his son. Patient was seen here on 02/21/2023 for suicidal ideation had safety plan established and was discharged home. He returned on 02/27/2023 for severe anxiety and again was discharged home. Patient denies hallucinations. Related Data Home Medications Medication Instructions Recorded Confirmed sertraline 100 mg tablet 150 mg PO DAILY 03/05/21 02/28/23 fluoxetine 20 mg tablet 20 mg PO DAILY 02/27/23 02/28/23 hydroxyzine HCl 25 mg tablet 25 mg PO TID PRN #14 tabs 02/27/23 02/28/23 trazodone 50 mg tablet 50 mg PO HS 02/27/23 02/27/23 Previous Rx's Medication Instructions Recorded hydroxyzine HCl 25 mg tablet 25 mg PO TID PRN #14 tabs 02/27/23 Allergies Allergy/AdvReac Type Severity Reaction Status Date / Time No Known Allergies Allergy Unverified 02/28/23 17:19 General Stated Complaint: Anxiety LINDA: 3 Review of Systems All systems reviewed & are unremarkable except as noted in HPI and below Constitutional Constitutional: Denies fever(s) Cardiovascular Cardiovascular: Denies chest pain Psychiatric Psychiatric: Reports depression, Reports homicidal ideation and Reports suicidal ideation PFSH All Active Problems (Updated 02/28/23 @ 23:31 by Mansoor Magaña MD) Pharyngitis (Acute) Fever (Acute) Brain lesion (Acute) Suicidal ideations (Acute) Anxiety (Chronic) Anxiety (Chronic) Homicidal thoughts (Acute) Outbursts of anger (Acute) Arachnoid cyst (Acute) Medical History Depression Fracture of left upper extremity age 3 Strabismus Family History Mother Substance abuse Healthy adult Mental disorder Father Substance abuse Healthy adult GRANDPARENT Substance abuse Essential hypertension Hyperlipidemia Social History Smoking/Tobacco Use Status: Never Smoking risk assessment performed?: Yes Alcohol Intake: current Alcohol Intake frequency: holidays/special occasions only Drug use: Daily Substance use type: marijuana Do you feel safe at home: Yes Do you feel safe in your relationship?: Yes Exam Const General: cooperative and no acute distress HENMT Head: normocephalic and atraumatic Mouth: moist mucous membranes Eyes EOM: EOM intact bilaterally Neck Neck: trachea midline and supple Resp Auscultation: clear to auscultation bilaterally, no rales, no rhonchi and no wheezes Cardio Rate: regular rate and not tachycardic Rhythm: regular rhythm GI Palpation: soft, not firm, no guarding, no masses, not rigid and nontender Skin General skin exam: no rashes or lesions noted Neuro General: patient alert, patient awake, patient oriented x3 and tone normal Extrem General: no edema Psych Appearance: grossly normal Mental Status: mental status grossly normal Speech and Movement: speech and movement normal Affect: normal affect Attitude: cooperative Thought Process: normal Course Vital Signs Vital signs: Vital Signs Temperature 36.6 C 02/28/23 17:10 Pulse 136 H 02/28/23 17:10 Respiratory Rate 25 H 02/28/23 17:10 Pulse Oximetry 99 02/28/23 17:10 Temperature 36.6 C 02/28/23 17:10 Temperature Source Skin 02/28/23 17:10 Pulse 84 02/28/23 18:51 Pulse 96 H 02/28/23 18:51 Respiratory Rate 23 02/28/23 18:51 Respiratory Effort Normal 02/28/23 17:15 Respiratory Depth Normal 02/28/23 17:15 Respiratory Pattern Normal 02/28/23 17:15 Blood Pressure 122/75 02/28/23 18:51 Blood Pressure Mean 87 02/28/23 18:51 Blood Pressure Position Supine 02/28/23 17:10 Pulse Oximetry 99 02/28/23 17:10 Oxygen Delivery Method Room Air 02/28/23 17:10 Oxygen Flow Rate 0 02/28/23 17:10 Lab/Test Results Lab/Test Results: Laboratory Tests Range/Units 02/28/23 02/28/23 02/28/23 17:17 17:17 17:17 WBC (4.4-10.8) 10^3/uL 16.00 H RBC (4.36-5.78) 10^6/uL 5.59 Hgb (13.5-17.5) g/dL 17.0 Hct (40.0-50.0) % 50.8 H MCV (80-95) fL 91 MCH (27.0-33.0) pg 30.4 MCHC (32.0-36.0) % 33.5 RDW (11.8-14.1) % 12.4 Plt Count (130-400) 10^3/uL 356 MPV (8.0-11.0) fL 11.3 H Immature Gran % 0.0 Neutrophils % 58.0 Lymphocytes % 35.0 Monocytes % 6.0 Eosinophils % 1.0 Basophils % 0.0 Nucleated RBC % (0.0-0.3) % 0.0 Absolute Neutrophils (1.2-6.7) 10^3/uL 9.28 H Absolute Lymphocytes (1.2-3.4) 10^3/uL 5.60 H Absolute Monocytes (0.1-0.8) 10^3/uL 0.96 H Absolute Eosinophils (0.0-0.7) 10^3/uL 0.16 Absolute Basophils (0.0-0.2) 10^3/uL 0.00 RBC Morphology Normal Sodium (136-145) mmol/L 147 H Potassium (3.5-5.1) mmol/L 4.5 Chloride (98-107) mmol/L 105 Carbon Dioxide (21.0-32.0) mmol/L 22.2 Anion Gap (3-11) mmol/L 19.8 H BUN (7-18) mg/dL 13 Creatinine (0.70-1.30) mg/dL 1.3 Est GFR (CKD-EPI 2020) (mL/min/1.73m2) 79.16 Glucose (74-106) mg/dL 119 H Calcium (8.5-10.1) mg/dL 10.7 H Total Bilirubin (0.2-1.0) mg/dL 0.7 AST (15-37) U/L 12 L ALT (16-63) U/L 19 Alkaline Phosphatase (46-116) U/L 90 Total Protein (6.4-8.2) g/dL 9.6 H Albumin (3.4-5.0) g/dL 5.2 H TSH (0.36-3.74) uIU/mL 1.90 Salicylates (<2.8) mg/dL 3.8 Acetaminophen (10-30) ug/mL < 2 Ethyl Alcohol (<10) mg/dL < 3.0
[2023-02-28 19:50] LABS: *AMPHETAMINES SCREEN URINE Negative (Negative); *BARBITURATES SCREEN URINE Negative (Negative); *BENZODIAZEPINES SCREEN URINE Positive (Negative); Cannabinoids THC Positive (Negative); Cocaine Screen,Urine Negative (Negative); METHADONE URINE SCREEN Negative (Negative); OPIATES URINE SCREEN Negative (Negative); Tricyclic Antidepressants Negative (Negative)
[2023-02-28] MEDS: Normal Saline 500 ML IV (22:30)
[2023-02-28 23:22] LABS: Anion Gap 11.2 mmol/L (3-11); BUN 11 mg/dL (7-18); CO2 23.8 mmol/L (21.0-32.0); CREATININE 0.9 mg/dL (0.70-1.30); Calcium 8.6 mg/dL (8.5-10.1); Chloride 105 mmol/L (98-107); Estimated GFR 123.07 (mL/min/1.73m2); Glucose 100 mg/dL (74-106); Potassium 3.3 mmol/L (3.5-5.1); Sodium 140 mmol/L (136-145)
== END 2023-02-28 23:38 | disposition home or self-care (01) ==
PROVIDERS: Emergency Provider Student in an Organized Health Care Education/Training Program; PCP Family Medicine
DX: F41.9 Anxiety disorder, unspecified (principal); R45.850 Homicidal ideations; R45.4 Irritability and anger; G93.0 Cerebral cysts; V43.42XA Person boarding or alighting a car injured in collision with other type car, initial encounter; Y92.481 Parking lot as the place of occurrence of the external cause
CPT/HCPCS: 80048; 80053; 80307; 93005; 96361; 96374; 99285; 70470; 80320; 80329; 84443; 85025; 93010; 99284; J2250; J3490

== ENCOUNTER 2023-03-28 15:54 | Observation (INO) | payer MEDICAID, SELFPAY ==
[2023-03-28 15:57] VITALS: BP 152/83; PULSE 110; RESP 16; TEMP 36.6; O2SAT 98
--- NOTE | 2023-03-28 16:05 | W.ED.GENAD ---
Discharge Plan Disposition Patient Disposition: Admit to [facility] Condition: Stable Discharge Details Chief Complaint: PsychEval Clinical Impression: Suicidal ideations Primary Care Provider: Alex Downey ED Provider: Vitaliy Jernigan Home Meds and New Rx's Prescriptions: No Action sertraline 100 mg tablet 150 mg PO DAILY Patient Comments: stopped taking 1 year ago 02/21/23 CT lithium carbonate 300 mg tablet Patient Comments: pt is unsure of dosing, pt was switched to this today and has not taken a dose yet. 03-28-23 trazodone 50 mg tablet 50 mg PO HS fluoxetine 20 mg tablet 20 mg PO DAILY Patient Comments: pt states not taking anymore, today was last dose 03-28-23 hydroxyzine HCl 25 mg tablet 25 mg PO TID PRNQty: 14 0RF Medical Decision Making 23 yo male with hx of anxiety and recent ED visit in February for depression/si and discharged, comes in with continued thoughts of self harm and thoughts of hanging himself, denies actual attempts to harm himself. He is ambulatory on arrival, calm and cooperative. Caox4 no focal motor deficits and clear speech. Given he is on lithium will check this level and obtain screening labs and if unremarkable obtain [facility] eval. labs unremarkable other then wbc of 19, has had leukocytosis on previous cbc's as well. Denies any infectious symptoms, do not feel other emergent workup for this indicated, medically cleared to speak with mental health pt stable, spoke with [facility] and will be seeking voluntary placement, will discuss with hospitalist about admission Differential Diagnosis Differential Diagnosis: depression/si, bipolar Medical Records Medical records reviewed: Yes I reviewed the patient's medical records. Lab Data Lab results reviewed: Yes I reviewed the patient's lab results. HPI General Mode of arrival: ambulatory. Date/Time Provider Initiated Documentation: 03/28/23 15:56. Limitations to Documentation: no limitations. Information obtained by: patient. History of Present Illness 23 year old M presents to the emergency department with the chief complaint of depressed/si, described as moderate, Patient started experiencing this month(s) (1) and it has been constant. No relieving factors improve symptom(s), No exacerbating factors reported . Patient notes no other symptoms.. Patient did receive the following treatments prior to arrival, none Related Data Home Medications Medication Instructions Recorded Confirmed sertraline 100 mg tablet 150 mg PO DAILY 03/05/21 02/28/23 fluoxetine 20 mg tablet 20 mg PO DAILY 02/27/23 02/28/23 hydroxyzine HCl 25 mg tablet 25 mg PO TID PRN #14 tabs 02/27/23 03/28/23 trazodone 50 mg tablet 50 mg PO HS 02/27/23 03/28/23 lithium carbonate 300 mg tablet mg 03/28/23 03/28/23 Previous Rx's Medication Instructions Recorded hydroxyzine HCl 25 mg tablet 25 mg PO TID PRN #14 tabs 02/27/23 Allergies Allergy/AdvReac Type Severity Reaction Status Date / Time No Known Allergies Allergy Unverified 03/28/23 15:59 General Stated Complaint: PsychEval LINDA: 2 Review of Systems All systems reviewed & are unremarkable except as noted in HPI and below Constitutional Constitutional: Denies chills, Denies fever(s) and Denies weakness Eyes Eyes: Denies loss of vision ENT Ears, Nose, Mouth, and Throat: Denies change in voice Cardiovascular Cardiovascular: Denies chest pain and Denies dyspnea Respiratory Respiratory: Denies cough and Denies dyspnea Gastrointestinal Gastrointestinal: Denies abdominal pain, Denies nausea and Denies vomiting Integumentary/Breasts Skin/Breast: Denies rash Neurologic Neurologic: Denies loss of vision and Denies weakness PFSH All Active Problems (Updated 03/28/23 @ 18:45 by Vitaliy Jernigan MD) Pharyngitis (Acute) Fever (Acute) Brain lesion (Acute) Anxiety (Chronic) Anxiety (Chronic) Homicidal thoughts (Acute) Outbursts of anger (Acute) Arachnoid cyst (Acute) Suicidal ideations (Acute) Medical History Depression Fracture of left upper extremity age 3 Strabismus Family History Mother Substance abuse Healthy adult Mental disorder Father Substance abuse Healthy adult GRANDPARENT Substance abuse Essential hypertension Hyperlipidemia Social History Smoking/Tobacco Use Status: Never Smoking risk assessment performed?: Yes Alcohol Intake: current Alcohol Intake frequency: holidays/special occasions only Drug use: Daily Substance use type: marijuana Do you feel safe at home: Yes Do you feel safe in your relationship?: Yes Exam Const General: no acute distress Orientation: alert HENMT Head: normal to inspection Ears: external ears normal General nose exam: external nose normal Mouth: moist mucous membranes Eyes General: appearance normal, both eyes and all related structures Neck Neck: normal visual inspection Resp Effort & Inspection: normal respiratory effort and able to speak in complete sentences Cardio Rate: regular rate Skin General skin exam: no rashes or lesions noted Neuro General: patient alert and patient oriented x3 Extrem General: normal to inspection Psych Mental Status: mental status grossly normal Attitude: cooperative and not belligerent Course Vital Signs Vital signs: Vital Signs Temperature 36.6 C 03/28/23 15:57 Pulse 110 H 03/28/23 15:57 Respiratory Rate 16 03/28/23 15:57 Blood Pressure 152/83 H 03/28/23 15:57 Pulse Oximetry 98 03/28/23 15:57 Temperature 36.6 C 03/28/23 15:57 Temperature Source Skin 03/28/23 15:57 Pulse 110 H 03/28/23 15:57 Respiratory Rate 16 03/28/23 15:57 Blood Pressure 152/83 H 03/28/23 15:57 Blood Pressure Position Sitting 03/28/23 15:57 Pulse Oximetry 98 03/28/23 15:57 Oxygen Delivery Method Room Air 03/28/23 15:57 Oxygen Flow Rate 0 03/28/23 15:57
[2023-03-28 16:23] LABS: Bilirubin Small (Negative); Blood Negative (Negative); Clarity Clear (Clear); Glucose Negative (Negative); Ketones Trace mg/dL (Negative); Leukocyte Esterase Negative (Negative); Nitrite Negative (Negative); Specific Gravity 1.025 (1.005-1.025); Urobilinogen 0.2 mg/dL (Up to 0.2); pH 5.5 (5-8)
[2023-03-28 16:29] LABS: *AMPHETAMINES SCREEN URINE Negative (Negative); *BARBITURATES SCREEN URINE Negative (Negative); *BENZODIAZEPINES SCREEN URINE Negative (Negative); Cannabinoids THC Positive (Negative); Cocaine Screen,Urine Negative (Negative); METHADONE URINE SCREEN Negative (Negative); OPIATES URINE SCREEN Negative (Negative)
[2023-03-28 16:31] LABS: Abs Immature Grans 0.07 10^3/uL (0.0-0.06); Absolute Eosinophil Count 0.39 10^3/uL (0.0-0.7); Absolute Neutrophil Count 13.28 10^3/uL (1.2-6.7); Basophils % 0.4; HCT 45.6 % (40.0-50.0); HGB 15.7 g/dL (13.5-17.5); Immature Grans % 0.4; Lymphocytes % 18.7; MCH 30.6 pg (27.0-33.0); MCHC 34.4 % (32.0-36.0); MCV 89 fL (80-95); MPV 10.9 fL (8.0-11.0); Monocytes % 9.8; Neutrophils % 68.7; Platelet Count 324 10^3/uL (130-400); RBC 5.13 10^6/uL (4.36-5.78); RDW 12.2 % (11.8-14.1); RDW-SD 40.3 fL; WBC 19.33 10^3/uL (4.4-10.8)
[2023-03-28 16:33] LABS: Bacteria Negative HPF (Negative); C & S Indicated? No; Casts Negative LPF (Negative); Crystals Negative HPF (Negative); Epithelial Cells Rare HPF (Negative); Mucus Trace (Negative); RBC 0-2 HPF (0-2); WBC 0-2 HPF (0-5)
[2023-03-28 16:39] LABS: Tricyclic Antidepressants Negative (Negative)
[2023-03-28 16:39] LABS: Absolute Basophil Count 0.08 10^3/uL (0.0-0.2); Absolute Lymphocyte Count 3.61 10^3/uL (1.2-3.4); Absolute Monocyte Count 1.89 10^3/uL (0.1-0.8)
[2023-03-28 16:53] LABS: Diff Comment Agrees w/ Instrument; RBC Morphology Normal
[2023-03-28 17:01] LABS: Salicylate < 2.8 mg/dL (<2.8)
[2023-03-28 17:02] LABS: Acetaminophen < 2 ug/mL (10-30); Lithium < 0.2 mmol/l (0.6-1.2)
[2023-03-28 17:08] LABS: ALT 24 U/L (16-63); AST 12 U/L (15-37); Albumin 4.6 g/dL (3.4-5.0); Alkaline Phosphatase 84 U/L (46-116); Anion Gap 10.6 mmol/L (3-11); BUN 18 mg/dL (7-18); Bilirubin, Total 0.7 mg/dL (0.2-1.0); CO2 26.4 mmol/L (21.0-32.0); Calcium 9.5 mg/dL (8.5-10.1); Chloride 107 mmol/L (98-107); Estimated GFR 107.78 (mL/min/1.73m2); Glucose 93 mg/dL (74-106); Potassium 3.5 mmol/L (3.5-5.1); Sodium 144 mmol/L (136-145); TSH (W/Ref FT4) 2.18 uIU/mL (0.36-3.74); Total Protein 8.8 g/dL (6.4-8.2)
[2023-03-28 17:09] LABS: ETHANOL BLOOD < 3.0 mg/dL (<10)
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
--- NOTE | 2023-03-28 19:49 | HPE_ITS ---
Date of service: 03/28/23 Time of Service: 21:41 Assessment and Plan Assessment and plan (1) Suicidal ideations: Status: Acute Assessment and plan: Kaden is admitted for active suicidal prepping behavior after several weeks of attempted outpatient management. He is voluntary. He was cleared in the e mergency room and is waiting for placement. (2) Mood disorder: Status: Acute Assessment and plan: Presumptive diagnosis is bipolar disorder with depression based on his increased agitation on SSRI therapy. Will defer to psychiatry for formal diagnosis. I am also his PCP and so I will continue the plan we had made to transition to lithium with hs quetiapine and stop the ziprazodone. TSH, CMP were repeated today. Will allow for prn lorazepam and hydroxizine, both of which have helped in the past. (3) Leukocytosis: Status: Acute Assessment and plan: This has been noted in all 3 blood counts done 02/21, 02/28, and today. This suggests it is not medication related or related to an acute infection. It has slowly increased from 15->16->19.3 today. He has no obvious lymphadenopathy or other blood cell abnromalities. He did endorse some hot flashes off/on today, but no other possible b-symptoms. This may be simply stress related, but if this persists an outpatient hematology work up would be warranted. (4) DVT prophylaxis: Status: Acute Assessment and plan: not indicated due to low risk, ambulatory (5) Discharge planning issues: Status: Acute Assessment and plan: Admitted pending voluntary psychiatric placement. With patient monitor for safety. History of Present Illness History of Present Illness Chief Complaint: suicidal thought Narrative: 23 yo M with of anxiety disorder and progressive depression over the past 2 months sent from primary care clinic by myself after a follow up visit early this afternoon when he disclosed active suicidal thoughts with prepping behavior to hang himself. He has been thinking about suicide constantly. States 50:50 chance he will do it. He recently tested the rafters in his room to see if they would hold up, stares at a belt or rope for hours considering hanging himself. Denies current homocidal thoughts. He has scary nightmares every night, intrusive thoughts of self harm and things he doesn't want to think about, but no hallucinations. He was seen initlally in the ED 02/21 with suicidal thoughts. He was seen and evaluated by the crisis team and sent home. He was seen 02/22 in the clinic and started on fluoxetine and trazodone qhs for major depression. He presented again 02/27 to he ED with an axniety attack. No SI at that point. Was treated w ith hydroxyzine. He was again seen the next day 02/28 with suicidal and homocidal thoughts and erratic behavior. CT scan that day showed an arachnoid cyst, which had not changed from previous CT. He was seen in primary care 03/05 and there was concern of worsening on SSRI so treatment paradigm shifted to presumed bipolar disorder. Fluoxetine was stopped and ziprazodone was started at 40mg BId. He was seen 03/14 and felt a little better so ziprazodone was increased to 60mg BID. Today he presented for follow up with increased SI and felt that the ziprazodone wasn't ever really helping. Plan was to change to lithium and quetiapine, but after suicide risk was formally assessed it was clear admission would be the safest option for now and ED evaluation was recommended. Review of Systems Constitutional Constitutional: Denies chills, Reports difficulty sleeping, Denies fever(s), Denies headache(s), Reports lethargy, Denies night sweats (but getting hot flashes at times), Reports poor appetite, Denies weakness and Denies weight loss Eyes Eyes: Denies change in vision and Denies irritation ENT Ears, Nose, Mouth, and Throat: Denies dizziness, Denies headache(s), Denies nasal congestion, Denies nasal discharge and Denies sore throat Cardiovascular Cardiovascular: Denies chest pain, Denies palpitations and Denies orthopnea Respiratory Respiratory: Denies cough, Denies excessive phlegm production and Denies wheezing Gastrointestinal Gastrointestinal: Denies abdominal pain, Reports change in bowel habits (missed BM today, usually daily), Denies change in stool character, Denies heartburn, Denies diarrhea, Denies nausea and Denies vomiting Genitourinary Genitourinary: Denies hematuria, Denies dysuria and Denies urinary incontinence Musculoskeletal Musculoskeletal: Denies arthralgias and Denies joint swelling Integumentary/Breasts Skin/Breast: Denies rash and Denies skin ulcer Neurologic Neurologic: Denies confusion, Denies dizziness, Denies headache(s), Denies sensory deficit and Denies weakness Psychiatric Psychiatric: Reports as per HPI, Denies confusion, Reports depression, Denies auditory hallucinations, Denies mood swings, Reports panic attacks, Denies visual hallucinations and Denies hallucinations Endocrine Endocrine: Denies palpitations Hematologic/Lymphatic Hematologic/Lymphatic: Denies easy bleeding, Denies easy bruising and Denies lymphadenopathy Allergic/Immunologic Allergic/Immunologic: Denies wheezing PFSH All Active Problems DVT prophylaxis (Acute) Discharge planning issues (Acute) Leukocytosis (Acute) Mood disorder (Acute) Pharyngitis (Acute) Fever (Acute) Brain lesion (Acute) Anxiety (Chronic) Anxiety (Chronic) Homicidal thoughts (Acute) Outbursts of anger (Acute) Arachnoid cyst (Acute) Suicidal ideations (Acute) Medical History Depression Fracture of left upper extremity age 3 Strabismus Family History Mother Substance abuse Healthy adult Mental disorder Father Substance abuse Healthy adult GRANDPARENT Substance abuse Essential hypertension Hyperlipidemia Social History (Updated 03/28/23 @ 20:15 by Alex Downey) Smoking/Tobacco Use Status: Never Smoking risk assessment performed?: Yes Alcohol Intake: current Alcohol Intake frequency: holidays/special occasions only Drug use: Daily Substance use type: marijuana Do you feel safe at home: Yes Do you feel safe in your relationship?: Yes Additional Social history: Lives in [facility] with parents Iglesia and Nayana. Graduated [employer]. Working with Dad at [employer] in [facility] Grandparents also live in town Meds Allergies and Home Medications Allergies Allergy/AdvReac Type Severity Reaction Status Date / Time No Known Allergies Allergy Unverified 03/28/23 15:59 Home Medications Medication Instructions Recorded Confirmed Type sertraline 100 mg tablet 150 mg PO DAILY 03/05/21 02/28/23 History fluoxetine 20 mg tablet 20 mg PO DAILY 02/27/23 02/28/23 History hydroxyzine HCl 25 mg tablet 25 mg PO TID PRN #14 tabs 02/27/23 03/28/23 Rx trazodone 50 mg tablet 50 mg PO HS 02/27/23 03/28/23 History lithium carbonate 300 mg tablet mg 03/28/23 03/28/23 History ziprasidone HCl 60 mg capsule 60 mg PO DAILY 03/28/23 03/28/23 History Exam Narrative Exam Narrative: GEN: Alert and oriented, pleasant and cooperative, gives linear history. No acute distress at rest. HEENT: Head atraumatic. Conjunctiva clear, no icterus. PEERL, EOMI left, right strabismus (chronic). no rhinorrhea. MMM, OP benign. Neck is supple with no masses or lymphadenopathy, no thyromegaly. LUNGS: CTAB with normal effort CV: RRR with no murmurs, gallops, or rubs. ABD: +BS, soft, NT/ND EXT: no cyanosis, clubbing, or edema MSK: No joint redness or swelling NEURO: CN 2-12 grossly intact. Normal movement of 4 extremities. Normal speech and coordination. no tremor. DTRs 2+ katerin and symmetric. SKIN: No rashes or open wounds. PSYCH: normal mood and affect mildly anxious, but appears more relaxed than he did earlier in the day in the clinic. Linear thought process. Results Labs 03/28/23 16:17 03/28/23 16:17 Labs: Laboratory Results - last 24 hr 03/28/23 03/28/23 03/28/23 16:00 16:00 16:17 WBC RBC Hgb Hct MCV MCH MCHC RDW Plt Count MPV Immature Gran % Neutrophils % Lymphocytes % Monocytes % Eosinophils % Basophils % Nucleated RBC % Absolute Neutrophils Absolute Lymphocytes Absolute Monocytes Absolute Eosinophils Absolute Basophils RBC Morphology Sodium 144 Potassium 3.5 Chloride 107 Carbon Dioxide 26.4 Anion Gap 10.6 BUN 18 Creatinine 1.0 Est GFR (CKD-EPI 2020) 107.78 Glucose 93 Calcium 9.5 Total Bilirubin 0.7 AST 12 L ALT 24 Alkaline Phosphatase 84 Total Protein 8.8 H Albumin 4.6 TSH 2.18 Urine Color Yellow Urine Clarity Clear Urine pH 5.5 Ur Specific [place] 1.025 Urine Protein Trace H Urine Ketones Trace H Urine Blood Negative Urine Nitrite Negative Urine Bilirubin Small H Urine Urobilinogen 0.2 Ur Leukocyte Esterase Negative Urine RBC 0-2 Urine WBC 0-2 Ur Epithelial Cells Rare Urine Crystals Negative Urine Bacteria Negative Urine Casts Negative Urine Mucus Trace Ur Culture Indicated? No Urine Glucose Negative Salicylates Urine Opiates Screen Negative Urine Methadone Screen Negative Acetaminophen Ur Barbiturates Screen Negative Ur Tricyclics Screen Negative Ur Amphetamines Screen Negative U Benzodiazepines Scrn Negative [place] Urine Cocaine Screen Negative Ur THC Screen Positive A Ethyl Alcohol < 3.0 03/28/23 03/28/23 16:17 16:17 WBC 19.33 H RBC 5.13 Hgb 15.7 Hct 45.6 MCV 89 MCH 30.6 MCHC 34.4 RDW 12.2 Plt Count 324 MPV 10.9 Immature Gran % 0.4 Neutrophils % 68.7 Lymphocytes % 18.7 Monocytes % 9.8 Eosinophils % 2.0 Basophils % 0.4 Nucleated RBC % 0.0 Absolute Neutrophils 13.28 H Absolute Lymphocytes 3.61 H Absolute Monocytes 1.89 H Absolute Eosinophils 0.39 Absolute Basophils 0.08 RBC Morphology Normal Sodium Potassium Chloride Carbon Dioxide Anion Gap BUN Creatinine Est GFR (CKD-EPI 2020) Glucose Calcium Total Bilirubin AST ALT Alkaline Phosphatase Total Protein Albumin TSH Urine Color Urine Clarity Urine pH Ur Specific [place] Urine Protein Urine Ketones Urine Blood Urine Nitrite Urine Bilirubin Urine Urobilinogen Ur Leukocyte Esterase Urine RBC Urine WBC Ur Epithelial Cells Urine Crystals Urine Bacteria Urine Casts Urine Mucus Ur Culture Indicated? Urine Glucose Salicylates < 2.8 Urine Opiates Screen Urine Methadone Screen Acetaminophen < 2 Ur Barbiturates Screen Ur Tricyclics Screen Ur Amphetamines Screen U Benzodiazepines Scrn [place] < 0.2 L Urine Cocaine Screen Ur THC Screen Ethyl Alcohol Last Vital Signs Temp 36.6 C 03/28/23 15:57 Pulse 110 H 03/28/23 15:57 Resp 16 03/28/23 15:57 BP 152/83 H 03/28/23 15:57 Pulse Ox 98 03/28/23 15:57 Time Spent Time spent with Patient: 55-74 minutes Time was spent: preparing to see the patient(eg.review tests), obtaining and/or reviewing separately otained hiistory, referring, communicating with other health home care assistant, indepentently interpreting results, counseling the patient and care coordination
[2023-03-28] MEDS: Lithium Carbonate 150 MG CAP 300 MG PO (21:22)
[2023-03-28] MEDS: QUEtiapine 100 MG TAB PO (21:22)
[2023-03-28 21:33] VITALS: BP 134/79; PULSE 71; RESP 15; TEMP 36.8; O2SAT 100
[2023-03-29 07:12] VITALS: BP 130/82; PULSE 82; RESP 16; TEMP 36.5; O2SAT 99
[2023-03-29] MEDS: Lithium Carbonate 300 MG CAP PO ×2 (08:31→13:03)
--- NOTE | 2023-03-29 08:32 | CMSP_ITS ---
Date of service: 03/29/23 Time of Service: 08:32 Care Management Safety Plan Status Status: Voluntary Reason for Wait Reason for Wait: Inpatient Admission Safety Plan Safety Plan: VOLUNTARY FOR INPATIENT PSYCHIATRIC STABILIZATION.? Patient is appropriate in all interactions since arriving at [facility]; Pt has demonstrated appropriate coping and communication skills, has articulated his or her needs and concerns and is fully engaged during staff interactions. Safety plan has been established with patient, and care team, to adhere to patient goals, identify restrictions based on behavioral status, address nutrition, and determine allowed personal belongings, tools for hygiene and personal care. Determine level of activity including ambulation, level of supervision, visitors, and determine privileges based on behaviors and level of engagement by pt. VOLUNTARY SAFETY PLAN: 1. Will remain on suicide precautions. In Paper Clothes 2. Will remain in room under direct supervision of one-on-one staff at all times provided by [employer]; RASHAUN, SUIT MAKER refinery operator [employer]. 3. May have paper cups, plates, finger foods as well as a cardboard spoon with which to eat meals. 4. Follow [facility] Management of the Admitted Behavioral Health Patient policy. 5. Comfort bath system only, shower permitted with escort at RN discretion. 6. No personal belongings-soft items permitted at RN discretion. 7. Visitors-limited to family at this time. 8. Activities: soft cart items approved per RN discretion. 9.? Bathroom privileges available in room without limitation on M/S. 10. Phone: contact via cordless phone at RN discretion. 11. Due to VOLUNTARY status, if patient wishes to leave [facility], staff will contact [facility] Crisis Screener ([phone]) and On-Call Application Support Lead ([phone]) as soon as possible. In the event of elopement, notify [facility] Police ([phone]). Patient is currently voluntarily at [facility] and seeking inpatient admission when a bed becomes available. [facility] Frontline [facility]el [facility] will continue seeking placement. Please contact the [employer] Application Support Lead ([phone]) and [facility] Heel Layer ([phone]) for any needed changes in the Safety Plan. Safety plan has been provided to interdepartmental care team.
--- NOTE | 2023-03-29 09:35 | DSE_ITS ---
Date of service: 03/29/23 Time of Service: 09:35 DS: Diagnosis Discharge Diagnosis (1) Suicidal ideations: Status: Acute (2) Mood disorder: Status: Acute (3) Leukocytosis: Status: Acute Discharge Plan Disposition Patient Disposition: Psychiatric Hospital/Unit Specific Psychiatric Facility: [facility] Condition: Serious Discharge Details Reason For Visit: Depression,SI Admit Date/Time: 03/28/23 18:46 Admit Provider: Alex Downey Attending Provider: Alex Downey Primary Care Provider: Alex Downey [facility] Hospital Course: This is a 23 yo male with history of anxiety disorder and progressive depression over the past 2 months sent to the ED from primary care clinic by pcp after a follow up visit earlier when he disclosed active suicidal thoughts with prepping behavior to hang himself.? Reportedly, he has been thinking about suicide constantly. He denied homicidal thoughts. Recent history: Evaluated in the ED 02/21 with suicidal thoughts.? He was seen and evaluated by the crisis team and sent home.? Evaluated 02/22 in the clinic and started on fluoxetine and trazodone qhs for major depression.? Presented again 02/27 to he ED with an anxiety attack.? No SI at that point.? Was treated with hydroxyzine.? Returned the next day 02/28 with suicidal and homicidal thoughts and erratic behavior.? CT scan that day showed an arachnoid cyst, which had not changed from previous CT.? Seen in primary care 03/05 and there was concern of worsening on SSRI so treatment paradigm shifted to presumed bipolar disorder.? Fluoxetine was stopped and ziprazodone was started at 40mg BID.? Seen 03/14 and felt a little better so ziprazodone was increased to 60mg BID.? Returned to clinic on March 28 for follow up with increased SI and felt that the ziprazodone wasn't ever really helping.? Plan was to change to lithium and quetiapine, but after suicide risk was formally assessed it was clear admission would be the safest option at this point so he was sent to the ED for evaluat ion. Medical screening was completed and no acute medical condition identified. elevated white count likely stress response with no evidence of active infection. He was cleared for psychiatric evaluation and deemed appropriate for voluntary inpatient management. [facility] Report given to Graham Sotomayor APRN. discharge discussed with DR Babcock Home Meds and New Rx's Prescriptions: New quetiapine 100 mg Tablet 100 mg PO HS Qty: 0 0RF Continued lithium carbonate 300 mg tablet 300 mg PO TID trazodone 50 mg tablet 50 mg PO HS hydroxyzine HCl 25 mg tablet 25 mg PO TID PRNQty: 14 0RF Discontinued sertraline 100 mg tablet 150 mg PO DAILY Patient Comments: stopped taking 1 year ago 02/21/23 CT ziprasidone HCl 60 mg capsule 60 mg PO DAILY Patient Comments: TAKE ONE CAPSULE BY MOUTH TWICE A DAY fluoxetine 20 mg tablet 20 mg PO DAILY Patient Comments: pt states not taking anymore, today was last dose 03-28-23 Discharge Instructions Instructions: Suicide Prevention (DC) Referrals: Alex Downey [Primary Care Provider] - Activity:: Activity as Tolerated Equipment/Supplies:: No Equipment Needed Diet:: As Tolerated DS: Summary Time Spent with Patient providing and/or coordinating discharge services: Greater than 30 minutes Status at Discharge Functional status at discharge: independent ambulation Overall status at discharge: patient is not back to baseline Mental Status: mental status grossly normal Speech and Movement: speech and movement normal Mood: congruent mood Affect: normal affect Exam Const General: no acute distress Orientation: alert HENMT Head: normal to inspection Ears: external ears normal General nose exam: external nose normal Mouth: moist mucous membranes Eyes General: appearance normal, both eyes and all related structures Neck Neck: normal visual inspection Resp Effort & Inspection: normal respiratory effort and able to speak in complete sentences Cardio Rate: regular rate Skin General skin exam: no rashes or lesions noted Neuro General: patient alert and patient oriented x3 Extrem General: normal to inspection Psych Mental Status: mental status grossly normal Speech and Movement: speech and movement normal Mood: congruent mood Affect: normal affect DS: Data Vitals/I&O Vitals and I&O: Vital Signs Temperature 36.5 C 03/29/23 07:12 Temperature Source Tympanic 03/29/23 07:12 Pulse 82 03/29/23 07:12 Pulse Rhythm Regular 03/28/23 21:33 Respiratory Rate 16 03/29/23 07:12 Respiratory Effort Normal 03/28/23 21:33 Respiratory Depth Normal 03/28/23 21:33 Respiratory Pattern Normal 03/28/23 21:33 Blood Pressure 130/82 03/29/23 07:12 Blood Pressure Position Sitting 03/28/23 15:57 Pulse Oximetry 99 03/29/23 07:12 Oxygen Delivery Method Room Air 03/29/23 07:12 Oxygen Flow Rate 0 03/29/23 07:12 Pain Level 0 03/29/23 07:12 Intake & Output 03/28/23 03/28/23 03/29/23 11:59 23:59 11:59 Intake Total 350 / 350 Balance 350 / 350 Weight 92.986 kg Intake: Oral 350 / 350 Data Completed and Pending Labs on day of discharge: Labs from last 24 hours 03/28/23 03/28/23 03/28/23 16:17 16:17 16:17 WBC 19.33 H RBC 5.13 Hgb 15.7 Hct 45.6 MCV 89 MCH 30.6 MCHC 34.4 RDW 12.2 Plt Count 324 MPV 10.9 Immature Gran % 0.4 Neutrophils % 68.7 Lymphocytes % 18.7 Monocytes % 9.8 Eosinophils % 2.0 Basophils % 0.4 Nucleated RBC % 0.0 Absolute Neutrophils 13.28 H Absolute Lymphocytes 3.61 H Absolute Monocytes 1.89 H Absolute Eosinophils 0.39 Absolute Basophils 0.08 RBC Morphology Normal Sodium 144 Potassium 3.5 Chloride 107 Carbon Dioxide 26.4 Anion Gap 10.6 BUN 18 Creatinine 1.0 Est GFR (CKD-EPI 2020) 107.78 Glucose 93 Calcium 9.5 Total Bilirubin 0.7 AST 12 L ALT 24 Alkaline Phosphatase 84 Total Protein 8.8 H Albumin 4.6 TSH 2.18 Urine Color Urine Clarity Urine pH Ur Specific [place] Urine Protein Urine Ketones Urine Blood Urine Nitrite Urine Bilirubin Urine Urobilinogen Ur Leukocyte Esterase Urine RBC Urine WBC Ur Epithelial Cells Urine Crystals Urine Bacteria Urine Casts Urine Mucus Ur Culture Indicated? Urine Glucose Salicylates < 2.8 Urine Opiates Screen Urine Methadone Screen Acetaminophen < 2 Ur Barbiturates Screen Ur Tricyclics Screen Ur Amphetamines Screen U Benzodiazepines Scrn [place] < 0.2 L Urine Cocaine Screen Ur THC Screen Ethyl Alcohol < 3.0 03/28/23 03/28/23 16:00 16:00 WBC RBC Hgb Hct MCV MCH MCHC RDW Plt Count MPV Immature Gran % Neutrophils % Lymphocytes % Monocytes % Eosinophils % Basophils % Nucleated RBC % Absolute Neutrophils Absolute Lymphocytes Absolute Monocytes Absolute Eosinophils Absolute Basophils RBC Morphology Sodium Potassium Chloride Carbon Dioxide Anion Gap BUN Creatinine Est GFR (CKD-EPI 2020) Glucose Calcium Total Bilirubin AST ALT Alkaline Phosphatase Total Protein Albumin TSH Urine Color Yellow Urine Clarity Clear Urine pH 5.5 Ur Specific [place] 1.025 Urine Protein Trace H Urine Ketones Trace H Urine Blood Negative Urine Nitrite Negative Urine Bilirubin Small H Urine Urobilinogen 0.2 Ur Leukocyte Esterase Negative Urine RBC 0-2 Urine WBC 0-2 Ur Epithelial Cells Rare Urine Crystals Negative Urine Bacteria Negative Urine Casts Negative Urine Mucus Trace Ur Culture Indicated? No Urine Glucose Negative Salicylates Urine Opiates Screen Negative Urine Methadone Screen Negative Acetaminophen Ur Barbiturates Screen Negative Ur Tricyclics Screen Negative Ur Amphetamines Screen Negative U Benzodiazepines Scrn Negative [place] Urine Cocaine Screen Negative Ur THC Screen Positive A Ethyl Alcohol PFSH All Active Problems DVT prophylaxis (Acute) Discharge planning issues (Acute) Leukocytosis (Acute) Mood disorder (Acute) Pharyngitis (Acute) Fever (Acute) Brain lesion (Acute) Anxiety (Chronic) Anxiety (Chronic) Homicidal thoughts (Acute) Outbursts of anger (Acute) Arachnoid cyst (Acute) Suicidal ideations (Acute) Medical History Depression Fracture of left upper extremity age 3 Strabismus Family History Mother Substance abuse Healthy adult Mental disorder Father Substance abuse Healthy adult GRANDPARENT Substance abuse Essential hypertension Hyperlipidemia Social History (Updated 03/28/23 @ 20:15 by Alex Downey) Smoking/Tobacco Use Status: Never Smoking risk assessment performed?: Yes Alcohol Intake: current Alcohol Intake frequency: holidays/special occasions only Drug use: Daily Substance use type: marijuana Housing: house Do you feel safe at home: Yes Do you feel safe in your relationship?: Yes Additional Social history: Lives in [place] with parents Iglesia and Nayana. Graduated [employer]. Working with Dad at [employer] at [employer] in [place] Grandparents also live in town Time Spent with Patient Time Spent with Patient: 45-69 minutes Time was spent: preparing to see the patient(eg.review tests), ordering medications,tests, procedures, referring, communicating with other health acute care assistant and care coordination
--- NOTE | 2023-03-29 14:36 | PDOC.CMDIS ---
Date of service: 03/29/23 Time of Service: 14:36 LACE Index Scoring Tool Questions: Length of Stay (in days): 1 Was the patient admitted via the E.D.?: Yes E.D. Visits: 3 Answers: Total Score: 7 Risk of Readmission: Low Risk Care Management Discharge Plan Reason for Hospitalization: Depression, SI Discharge Plan: [facility] for Psychiatric stabilization, transport via [facility]. Patient/Family Education Needs: Safety planning, limitations, transfer considerations. Services Needed at Discharge: Psychiatric Facility and Transportation Disposition Disposition: [facility] Transport via of: [facility])
== END 2023-03-29 15:20 ==
LOC: ER 18:45 → MS 19:32
PROVIDERS: Admitting Provider Family Medicine; Emergency Provider Emergency Medicine; PCP Family Medicine; Visit Provider Family Medicine
DX: F31.9 Bipolar disorder, unspecified (principal); R45.851 Suicidal ideations; F41.9 Anxiety disorder, unspecified; Z79.899 Other long term (current) drug therapy; F12.90 Cannabis use, unspecified, uncomplicated; D72.829 Elevated white blood cell count, unspecified; G93.0 Cerebral cysts
CPT/HCPCS: 80053; 80307; 80178; 80320; 80329; 81003; 81015; 84443; 85025; 99238; G0378

== ENCOUNTER 2023-04-11 17:20 | Outpatient (REF) | payer MEDICAID, SELFPAY ==
[2023-04-11 19:38] LABS: Lithium 0.7 mmol/l (0.6-1.2)
== END 2023-04-11 17:21 | disposition home or self-care (01) ==
LOC: NCHCN 17:20
PROVIDERS: PCP Family Medicine; Visit Provider Family Medicine
DX: F32.9 Major depressive disorder, single episode, unspecified (principal)
CPT/HCPCS: 80178

== ENCOUNTER 2023-05-22 20:07 | Outpatient (REF) | payer MEDICAID, SELFPAY ==
[2023-05-22 17:22] LABS: Lithium 0.7 mmol/l (0.6-1.2)
[2023-05-22 17:35] LABS: Anion Gap 10.5 mmol/L (3-11); BUN 12 mg/dL (7-18); CO2 25.5 mmol/L (21.0-32.0); CREATININE 1.1 mg/dL (0.70-1.30); Calcium 9.6 mg/dL (8.5-10.1); Chloride 102 mmol/L (98-107); Estimated GFR 96.14 (mL/min/1.73m2); Glucose 98 mg/dL (74-106); Potassium 4.2 mmol/L (3.5-5.1); Sodium 138 mmol/L (136-145)
== END 2023-05-22 20:08 | disposition home or self-care (01) ==
LOC: NCHCN 20:07
PROVIDERS: PCP Family Medicine; Visit Provider Family Medicine
DX: F31.89 Other bipolar disorder (principal); Z51.81 Encounter for therapeutic drug level monitoring; Z79.899 Other long term (current) drug therapy
CPT/HCPCS: 80048; 80178

== ENCOUNTER 2023-12-14 15:51 | Emergency (ER) | payer MEDICAID, SELFPAY ==
[2023-12-14 15:58] VITALS: BP 135/90; RESP 18; TEMP 36.5; O2SAT 100
--- NOTE | 2023-12-14 16:00 | RT.EKG_ITS ---
APPROVED REPORT Exam: Resting ECG Reason for Exam: Tachycardia Patient Location: E HR:119 bpm ECG Measurements Heart Rate 119 AXIS AZ 114 P 64 QRSd 90 QRS 81 QT 311 T -61 QTc 438 Conclusion Sinus tachycardia...rate> 99 Ventricular premature complex...V complex w/ short R-R interval Probable left atrial enlargement...P >50mS, <-0.10mV V1 Narrow complex sinus tachycardia at a rate of 119. Normal axis. QTc within normal limits. Short AZ interval at 114 ms. No obvious delta wave. Compared to prior dated last year sinus tachycardia is new. AZ interval shortened slightly. No acute injury pattern. No ST segment abnormalities beyond m ild ST segment depressions V5 and V6.
--- NOTE | 2023-12-14 16:00 | DI.CT_ITS ---
Exam(s) CT HEAD WO EXAM: CT HEAD WO CLINICAL HISTORY: Known cyst now hallucinating. TECHNIQUE: Imaging Protocol: Axial computed tomography images with coronal and sagittal reformatted images were created and reviewed COMPARISON: CT CT HEAD WO/W from 02/28/2023 FINDINGS: Ventricles and Extra axial spaces: Normal in size and morphology for the patient's age. Hemorrhage: None. Cerebral parenchyma: No change in anterior left frontal arachnoid cyst. No evidence of acute infarct or mass. Midline shift: None. Brainstem/Cerebellum: Normal. Calvarium: Normal. Visualized Paranasal sinuses:Clear. Mastoids: Clear. Soft Tissues: Unremarkable. ORBITS: Unremarkable. PITUITARY: Not enlarged. IMPRESSION: No acute intracranial process. RADIATION DOSE DELIVERED: Total DLP DATA REPOSITORY: All CT scans at this facility are submitted to the National Radiology Data Registry (NRDR) Dose Index Registry (DIR) with the [employer] (ACR). RADIATION OPTIMIZATION: All CT scans at this facility use at least one of these dose optimization te chniques: automated exposure control; mA and/or kV adjustment per patient size (includes targeted exa ms where dose is matched to clinical indication); or iterative reconstruction.
--- NOTE | 2023-12-14 16:04 | W.ED.GENAD ---
Discharge Plan Discharge Details Chief Complaint: PsychEval Clinical Impression: Suicidal ideation, Visual hallucinations Primary Care Provider: Alex Downey ED Provider: Alex Pratt Home Meds and New Rx's Prescriptions: No Action lithium carbonate 300 mg tablet 600 mg PO HS quetiapine 100 mg Tablet 100 mg PO HS Qty: 0 0RF trazodone 50 mg tablet 50 mg PO HS HPI General Date/Time Provider Initiated Documentation: 12/14/23 16:03. HPI Narrative: MDM This is an anxious tachycardic but normothermic 23-year-old male off of his home lithium and quetiapine with known frontal cyst concerning for expanding cyst for which patient will undergo CT head in the setting of his paranoia with hallucinations. No fevers to suggest meningitis. Not altered to suggest encephalitis. Patient has not markedly hypertensive to suggest sympathomimetic toxidrome. Patient is not altered to suggest anticholinergic toxidrome. Given his tachycardia will obtain screening labs and ECG. I reordered the patient's trazodone and quetiapine. He is not altered to suggest lithium toxicity but I did order lithium level. No chest pain to suggest ACS so I did not order a troponin. Will repeat heart rate and once patient had a heart rate less than 110 bpm will consider the patient medically cleared based on smart medical clearance. No history of ethanol use to suggest increased risk for ethanol withdrawal. I reorder the patient's home medications. I placed him with a clinical safety monitor. I ordered him a regular diet on a safety tray. 5 PM CBC shows leukocytosis but no anemia. No thrombocytopenia. Leukocytosis improved compared to prior. 5:08 PM Patient metabolic panel showing very mild hypokalemia with a serum potassium of 3.3. Mild anion gap. Mild hyperglycemia but normal bicarbonate??not consistent with DKA. Normal reassuring creatinine. 5:13 PM Undetectable lithium level. 5:33 PM Repeat heart rate 87 bpm. Patient going off to CT head. 6:15 PM No acute intracranial process on CT head. I have asked for [facility] to be paged. 6:44 PM I met with Yany on video chat from [facility]. She reported that the patient would be voluntary for inpatient placement. Will complete a telepsych consult for a medication recommendation as patient has been off of his meds in the past probably 2 months. 10:56 PM No active behavioral issues through the remainder of my shift. Will sign patient out to the oncoming overnight provider. Of note, Telepsych not yet been completed. SMART medical clearance (if all five of the following are answered ``no?? then the patient is considered medically cleared and no testing is indicated): Suspect new onset psychiatric condition or features? [No] Medical conditions that require screening? [No] Diabetes (FSBS less than 60 or greater the 250) Possibility of (age 12 - 50) Other complaints that require screening Abnormal: [No] Vital signs? Temp: greater than 38.0 degrees C (100.4 degrees F) HR: less than 50 or greater than 110 BP: less than 100 systolic or greater than 180/110 (2 consecutive readings 10 min apart) RR: less than 8 or greater than 22 O2 sat: less than 95 % on room air Mental status? Cannot answer name, month/year and location (minimum A/Ox 3) If clinically intoxicated, HII score 4 or more? Physical Exam (unclothed)? Risky presentation? [No] Age less than 12 or greater than 55 Possibility of ingestion (screen all suicidal patients) Eating disorders Potential for alcohol withdrawal (daily use > or equal to 2 weeks) Ill appearing, significant injury, prolonged struggle or ``found down?? Therapeutic levels needed? [No] Phenytoin, Valproic Acid, [place], Digoxin, Warfarin, Carbamazepine Chronic conditions affecting the care of the patient: Suicidal ideation History obtained from an outside historian: Patient and father External record [place] [facility] [place] [Diagnostic interpretations performed by me: Per my independent interpretation chest x-ray shows: Per my independent interpretation EKG shows: Narrow complex sinus tachycardia at a rate of 119. Normal axis. QTc within normal limits. Short HI interval at 114 ms. No obvious delta wave. Compared to prior dated last year sinus tachycardia is new. HI interval shortened slightly. No acute injury pattern. No ST segment abnormalities beyond mild ST segment depressions V5 and V6. ]Medications: Lorazepam Social determinants of health affecting disposition: N/A Management discussed with: [facility] Treatment/interventions considered: N/A Response to therapies provided: Improved anxiety s/p lorazepam HPI This is a 23-year-old male with history of mood disorder and suicidal ideation arriving to the emergency department with his father via private vehicle in the setting of visual hallucinations. Patient was seen today by his primary care provider and referred to the emergency department. He reports that he stopped taking his lithium approximately 2 weeks ago as he started to feel happy. He endorses suicidal and homicidal ideation at the moment. He is having visual but not auditory hallucinations. He denies any cough shortness of breath chest pain fevers nausea vomiting dysuria nor frequency. He smokes marijuana but denies routine ethanol and illicits. No recent fever. Exam General: Anxious-appearing in no acute distress speaking in complete sentences. Head: Normocephalic, atraumatic. Eye: Extraocular eye movements intact. No conjunctival injection. No scleral icterus. Ear, nose, mouth, throat: Grossly normal inspection. Normal voice, handling secretions normally. Neck: Trachea midline. Cardiovascular: Well-perfused distal extremities. Respiratory: Nonlabored respiration. Gastrointestinal: Nondistended abdomen. Musculoskeletal: No edema. Moving all 4 extremities spontaneously. Skin: Normal for age and race, grossly normal temperature and turgor. No acute rash. Neurologic: Alert and appropriate, no apparent acute deficits. GCS 15. Psychiatric: Mildly anxious. No pressured speech. No flight of ideas. Patient Dors is visual and auditory hallucinations. He also endorses suicidal and homicidal ideation. Related Data Home Medications Medication Instructions Recorded Confirmed trazodone 50 mg tablet 50 mg PO HS 02/27/23 12/14/23 lithium carbonate 300 mg tablet 600 mg PO HS 03/29/23 12/14/23 quetiapine 100 mg tablet 100 mg PO HS #0 tabs 03/29/23 12/14/23 Previous Rx's Medication Instructions Recorded quetiapine 100 mg tablet 100 mg PO HS #0 tabs 03/29/23 Allergies Allergy/AdvReac Type Severity Reaction Status Date / Time No Known Allergies Allergy Unverified 03/28/23 15:59 General Stated Complaint: PsychEval LINDA: 4 Course Vital Signs Vital signs: Vital Signs Temperature 36.5 C 12/14/23 15:58 Respiratory Rate 18 12/14/23 15:58 Blood Pressure 135/90 12/14/23 15:58 Pulse Oximetry 100 12/14/23 15:58 Temperature 36.5 C 12/14/23 15:58 Temperature Source Temporal Artery Scan 12/14/23 15:58 Respiratory Rate 18 12/14/23 15:58 Blood Pressure 135/90 12/14/23 15:58 Blood Pressure Position Sitting 12/14/23 15:58 Pulse Oximetry 100 12/14/23 15:58 Oxygen Delivery Method Room Air 12/14/23 15:58 Oxygen Flow Rate 0 12/14/23 15:58 Medical Decision Making Quality:SDOH Health Related Social Needs: No Data to Display PFSH All Active Problems (Updated 12/14/23 @ 16:19 by Alex Pratt MD) Visual hallucinations (Acute) Suicidal ideation (Acute) Leukocytosis (Acute) Mood disorder (Acute) Pharyngitis (Acute) Fever (Acute) Brain lesion (Acute) Suicidal ideations (Acute) Medical History Depression Fracture of left upper extremity age 3 Strabismus Family History Mother Substance abuse Healthy adult Mental disorder Father Substance abuse Healthy adult GRANDPARENT Substance abuse Essential hypertension Hyperlipidemia Social History (Updated 03/28/23 @ 20:15 by Alex Downey) Smoking/Tobacco Use Status: Never Smoking risk assessment performed?: Yes Alcohol Intake: current Alcohol Intake frequency: holidays/special occasions only Drug use: Daily Substance use type: marijuana Housing: house Do you feel safe at home: Yes Do you feel safe in your relationship?: Yes Additional Social history: Lives in [place] with parents Iglesia and Nayana. Graduated [employer]. Working with Dad at [employer] at [facility] [employer] [facility] in [place] Grandparents also live in town
[2023-12-14] MEDS: LORazepam 1 MG TAB 2 MG PO (16:09)
[2023-12-14 16:32] VITALS: BP 132/97; PULSE 125; RESP 18; O2SAT 98
[2023-12-14 16:52] LABS: Abs Immature Grans 0.04 10^3/uL (0.0-0.06); Absolute Eosinophil Count 0.01 10^3/uL (0.0-0.7); Absolute Monocyte Count 1.03 10^3/uL (0.1-0.8); Basophils % 0.4; Eosinophils % 0.1; HCT 48.9 % (40.0-50.0); HGB 16.1 g/dL (13.5-17.5); Immature Grans % 0.3; Lymphocytes % 12.3; MCH 29.4 pg (27.0-33.0); MCHC 32.9 % (32.0-36.0); MCV 89 fL (80-95); MPV 11.5 fL (8.0-11.0); Monocytes % 7.4; Neutrophils % 79.5; Platelet Count 278 10^3/uL (130-400); RBC 5.47 10^6/uL (4.36-5.78); RDW 11.9 % (11.8-14.1); RDW-SD 39.4 fL; WBC 13.94 10^3/uL (4.4-10.8)
[2023-12-14 16:53] LABS: Absolute Basophil Count 0.06 10^3/uL (0.0-0.2); Absolute Lymphocyte Count 1.71 10^3/uL (1.2-3.4); Absolute Neutrophil Count 11.08 10^3/uL (1.2-6.7)
[2023-12-14 17:05] LABS: Anion Gap 11.6 mmol/L (3-11); BUN 12 mg/dL (7-18); CO2 25.4 mmol/L (21.0-32.0); Calcium 9.1 mg/dL (8.5-10.1); Chloride 104 mmol/L (98-107); Estimated GFR 107.78 (mL/min/1.73m2); Glucose 122 mg/dL (74-106); Potassium 3.3 mmol/L (3.5-5.1); Sodium 141 mmol/L (136-145)
[2023-12-14 17:09] LABS: Lithium < 0.2 mmol/l (0.6-1.2)
[2023-12-14 17:20] VITALS: BP 133/86; PULSE 87; RESP 16; O2SAT 99
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
[2023-12-14 19:52] LABS: *AMPHETAMINES SCREEN URINE Negative (Negative); *BARBITURATES SCREEN URINE Negative (Negative); *BENZODIAZEPINES SCREEN URINE Negative (Negative); Cannabinoids THC Positive (Negative); Cocaine Screen,Urine Negative (Negative); METHADONE URINE SCREEN Negative (Negative); OPIATES URINE SCREEN Negative (Negative)
[2023-12-14 19:56] LABS: Tricyclic Antidepressants Negative (Negative)
[2023-12-14 20:02] VITALS: BP 134/82; PULSE 77; RESP 16; TEMP 36.6; O2SAT 98
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
--- NOTE | 2023-12-15 00:34 | PSYCO_ITS ---
Date of service: 12/15/23 Time of Service: 00:34 Summary Note PSYCHIATRY CONSULT NOTE: INITIAL EVALUATION Name:?Kaden Sun :?2000 Location of the patient:?[facility] ED Consulting Array Clinician:?Jim Vega Location of the clinician:?CT SUMMARY 23-year-old male, with history of mood disorder, depressive disorder, history of suicide attempt(s), history of psychiatric hospitalization, with no current excessive drug use, no history of violent behavior, for suicidal ideation, depression. When seen, patient indicates he has had mood symptoms for years with ongoing depression, with off-and-on suicidal thoughts and homicidal ideation as well. He has not think he is actually been diagnosed with anything. He discontinued his medications because they made him feel like a zombie but without the means having uncontrolled anger, rage, paranoia, and his mood labile. He has not felt stable and he has had escalating thoughts about killing people as well as suicidal thoughts. He admits to trying to hang himself in September and has continued thoughts of doing this. He is only held back by the fact that he has not come up with a method that he thinks will be effective and quick. He says he has been on some other medications but he cannot remember many of the names. I asked him about risperidone and Depakote he has not been he has been on either medication and agrees to an initial trial of Risperidone 1 mg twice daily. He understands he may likely need a mood stabilizer as well.Patient is at elevated risk of danger to self. Patient presently meets criteria for inpatient psychiatric hospitalization. Working Diagnoses:?F34.8 Other persistent mood [affective] disorders Rule Out Diagnoses:?F31.9 Bipolar disorder; unspecified CPT Codes:?55248 - Psychiatric Diagnostic Evaluation with Medical Services PLAN Disposition:?Voluntary admission when medically stable. Re-consult psychiatry/screening if patient requests discharge. ? Observation level ? Psychiatric 1:1 needed??No psych 1:1 needed Work-up:? Pharmacological:? * risperidone 1 mg PO BID for psychosis * olanzapine 5mg?PO/IM Q6h PRN agitation, avoid concomitant use of benzo within 1 hour of IM olanzapine * Is patient psychotic? - Yes; Were antipsychotic medications started? - Yes * Informed consent: Discussed risks and benefits of the above recommended psychiatric medications with patient, who demonstrated understanding and gave express informed consent to take the above medications as documented. Follow up needed while in the hospital??As needed for management of behavior or change in mental status Other:? * Parts of this note were dictated using voice recognition software and may contain small irregularities and grammatical errors which are unintentional. * If questions arise about the psychiatric care of this patient, please call the [facility]?to request a follow-up consult. ?Please do not contact me individually through the EMR chat as I am not?regularly logged on to?this system. The psychiatrist for the follow-up visit may be a different psychiatrist Discussed plan with onsite meat service team member:?Yes - Dr Clair Zavala HISTORY Requested by:?Alex Pratt MD Sources of information:?Patient, medical record History of Present Illness:? 23-year-old male, living with family, single, unemployed, with history of mood disorder, depressive disorder, history of suicide attempt(s), history of psychiatric hospitalization, with no current excessive drug use, no history of violent behavior, for suicidal ideation, depression. UDS positive for cannabis/benzodiazepines. In the hospital, patient has been in behavioral control with no reported issues. Patient presented to the emergency department 12/14/2023 with paranoia and hallucinations. He was seen today by his primary care doctor and referred to the emergency department. He has been off his medications for about 2 weeks because he was feeling happy. He also endorses suicidal and homicidal ideation at the time he was seen by the ED provider. He is primarily having visual hallucinations. patient is currently seeking voluntary inpatient admission. On psychiatric evaluation, patient is reliable, organized, cooperative, pleas ant, able to give clear history. When seen he says he has been having alot of bad thoughts including homicidal thoughts. He says he has felt on edge since he turned 19yo. He says the HI has been going on a few months, toward people in general. He has also been having SI again ongoing for several years, but getting worse recently. I asked about stopping his medications and he says he didn't like the way he felt on it. he says he felt like a zombie and was unmotivated, low energy, cant get out of bed. Without it he is more rageful, paranoid, mood labile. He feels he hasnt felt stable. He has images in his head about killing people. He has also had suicidal thoughts every other day. he says he doesnt care any more. He says he tried to kill self by hanging self in his closet in September, but was unsuccessful and hasnt thought of any other way. He has been looking up other ways but hasnt come up with a way he thinks would be quick and effective. He says he has been on other meds that didnt work. I asked if he has been on depakote but he doesnt think he has been on it. He thinks he has bene on others but he cant remember. I asked about risperidone or abilify and he doesnt think he has bene on either.. Collateral Contacted No-- . PSYCHIATRIC REVIEW OF SYSTEMS (symptoms in past two weeks) Pertinent Positives:?depressed mood/anhedonia/hopelessness/insomnia/irritability/agitation/anxiety/impulsivity Pertinent Negatives:?no aggressive behavior/no command hallucinations/no panic attacks PSYCHIATRIC HISTORY Past Psychiatric Diagnoses/Problems:?mood disorder, depressive disorder Psychiatric Treatment:?Hospitalizations:?psychiatric hospitalization, [facility] 2022 ???Other Past treatment:?therapy, treatment with PCP ???Current treatment:?treatment with PCP, has never seen a psychiatrist; treatment non-adherent Drug/Alcohol History ???Current excessive drug/alcohol use:?none ???Past excessive drug/alcohol use:?none ???Drug/alcohol use comment:?Treatment:?none ???Withdrawal symptoms:?none ???UDS results:?UDS positive for cannabis/benzodiazepines ???BAL results:?Active withdrawal Protocol:? Stressors:?treatment non-adherence, exacerbation of mental illness Trauma:?none Family Psychiatric History:?none HEALTH HISTORY Medical Problems:?known frontal cyst Is patient linked with PCP? Psychiatric and other clinically relevant medications:?none - noncompliant Allergies/Adverse Medication Reactions:?NKDA Physical Findings:? DEMOGRAPHICS/SOCIAL HISTORY Gender:?male Living Situation:?living with family Relationship Status:?single Education:?high school/GED Employment:?unemployed Social Support Network:?supportive social network of family or friends Legal History:?none Special Considerations:?none RISK EVALUATION Suicidality/self-injury:?Yes suicidal ideation, suicide attempt(s) within past 6 months Primary Suicide Screening (PSS-3) 1. In the past two weeks, have you felt down, depressed, or hopeless??YES 2. In the past two weeks, have you had thoughts of killing yourself??YES 3. In your lifetime, have you ever attempted to kill yourself??YES 3a. Within the past 6 months??YES ESS-6 Secondary Screen ( If #2 is yes or #3a is yes within the past 6 months, then complete secondary screen) 1. Positive on PSS-3 questions 2 & 3 ? active suicidal ideation with a past attempt??YES 2. Have you been thinking about how you might kill yourself??YES 3. Have you had some intention of acting on your thoughts??YES 4. Lifetime psychiatric hospitalization??YES 5. Has drinking or substance abuse ever been a problem for you??NO 6. Current irritability, agitation, or aggression??YES PSS-3/ESS-6 Secondary Screen Scoring:?Severe PSS-3/ESS-6 Scoring Interpretation Legend PSS-3 screen incomplete [Blank PSS-3 questions #2 OR #3a] PSS-3 screen unable to assess [Unable to Assess responses on PSS-3 questions #2 AND #3a] Mild [No current attempt AND No suicide plan or intent AND Score (0-2)] Moderate [No current attempt AND Active suicidal ideation with plan or intent (not both) OR Score (3-4)] Severe [Current attempt OR Suicide plan and intent OR Score (5-6)] HI/Violence/Property Destruction:?no history of violent/aggressive behavior Access to Firearms:?none Grave disability/Poor self-care:? Psychosis:?Yes Protective Factors:? High Utilization Criteria:?none Signs of Secondary Gain:?None ? MENTAL STATUS EXAM Appearance and Attire:? Normal, Good eye contact, Well groomed, Tattoos Psychomotor agitation:? No abnormality Attitude and behavior:? Cooperative Speech:? No abnormality Mood:? Depressed Affect:? Constricted Thought Process:? Linear, Logical, Coherent Thought content:? Suicidal ideation, Homicidal ideation Perception:? No auditory hallucinations, Visual hallucinations, but he says its more like images in my head Intelligence:? Above average Abstraction:? Appropriate Language:? No abnormality Orientation:? Oriented x 4 Sensorium:? Normal Knowledge:? Appropriate for education and socioeconomic status Memory:? Intact Insight:? Moderate impairment Judgment:? Severe impairment SUMMARY RISK ASSESSMENT Current Suicide Risk Elevated??PSS-3/ESS-6 Scoring: Severe? Current Violence Risk Elevated??No Issues with ability to care for self.?No Jim Vega, , [facility]
--- NOTE | 2023-12-15 07:11 | W.EDPROG ---
Date of service: 12/15/23 Time of Service: 07:12 Medical Decision Making Patient currently seeking voluntary placement for depression and SI, currently calm and cooperative in no acute complaints, will continue to monitor until safe disposition made Quality:SDOH Health Related Social Needs: No Data to Display Sign Out Sign Out Data: Sign Out Comment: 23-year-old male with hallucinations and suicidal ideation. Home medications ordered with the exception of lithium with which patient has not been adherent for the past several months. Telepsych consult ordered but not yet completed. Regular diet on safety tray and clinical safety monitor ordered. Patient is voluntary and medically cleared. Follow-up: Telepsych for med recommendations Last updated by Alex Pratt MD at 12/14/23 23:00 Sign Out Comment: 23yo M, voluntary, SI/HI. Likely EE-able should he no longer want treatment. No behavioral issues. Medically cleared. Pending placement. Last updated by Clair Zavala MD at 12/15/23 05:50 Discharge Plan Discharge Details Chief Complaint: PsychEval Clinical Impression: Suicidal ideation, Visual hallucinations Primary Care Provider: Alex Downey ED Provider: Vitaliy Jernigan Home Meds and New Rx's Prescriptions: No Action lithium carbonate 300 mg tablet 600 mg PO HS quetiapine 100 mg Tablet 100 mg PO HS Qty: 0 0RF trazodone 50 mg tablet 50 mg PO HS
[2023-12-15] MEDS: hydrOXYzine HCL 25 MG TAB PO ×2 (08:38→12:38)
[2023-12-15] MEDS: risperiDONE 1 MG TAB PO (08:38)
[2023-12-15 08:56] VITALS: BP 135/75; PULSE 119; RESP 16; TEMP 36.8; O2SAT 100
--- NOTE | 2023-12-15 14:59 | NUR.NOTE ---
nurse to nurse handoff given to Amanda ([facility] [place]). Is requesting [facility] to bring pt to retreat. ETA 1600.Nursing Note:
[2023-12-15 15:52] VITALS: BP 139/93; PULSE 103; RESP 16; TEMP 36.8; O2SAT 99
[2023-12-15 16:26] VITALS: BP 139/93; PULSE 103; RESP 16; TEMP 36.8; O2SAT 99
== END 2023-12-15 16:30 ==
PROVIDERS: Emergency Medicine; Emergency Provider Emergency Medicine; PCP Family Medicine
DX: R45.851 Suicidal ideations (principal); R44.1 Visual hallucinations; F20.0 Paranoid schizophrenia; R00.2 Palpitations; F12.90 Cannabis use, unspecified, uncomplicated; G93.9 Disorder of brain, unspecified; Z91.148 Patient's other noncompliance with medication regimen for other reason
CPT/HCPCS: 00123; 80048; 80307; 93005; 96127; 99285; H0046; 70450; 80178; 85025; 93010

== ENCOUNTER 2024-05-14 18:11 | Outpatient (REF) | payer MEDICAID, SELFPAY ==
[2024-05-14 20:21] LABS: Abs Immature Grans 0.04 10^3/uL (0.0-0.06); Absolute Basophil Count 0.06 10^3/uL (0.0-0.2); Absolute Eosinophil Count 0.15 10^3/uL (0.0-0.7); Absolute Lymphocyte Count 3.14 10^3/uL (1.2-3.4); Absolute Monocyte Count 0.69 10^3/uL (0.1-0.8); Absolute Neutrophil Count 5.88 10^3/uL (1.2-6.7); Basophils % 0.6 %; Eosinophils % 1.5 %; HCT 47.1 % (40.0-50.0); HGB 15.8 g/dL (13.5-17.5); Immature Grans % 0.4 %; Lymphocytes % 31.5 %; MCH 29.9 pg (27.0-33.0); MCHC 33.5 % (32.0-36.0); MCV 89 fL (80-95); Monocytes % 6.9 %; Neutrophils % 59.1 %; Platelet Count 324 10^3/uL (130-400); RBC 5.28 10^6/uL (4.36-5.78); RDW 12.6 % (11.8-14.1); RDW-SD 41.5 fL; WBC 9.96 10^3/uL (4.4-10.8)
[2024-05-14 20:51] LABS: ALT 34 U/L (16-63); AST 15 U/L (15-37); Albumin 3.8 g/dL (3.4-5.0); Alkaline Phosphatase 83 U/L (46-116); Anion Gap 8.7 mmol/L (3-11); BUN 18 mg/dL (7-18); Bilirubin, Total 0.52 mg/dL (0.2-1.0); CO2 25.3 mmol/L (21.0-32.0); CREATININE 1.1 mg/dL (0.70-1.30); Calcium 8.8 mg/dL (8.5-10.1); Calculated LDL 140 mg/dL (<100); Chloride 106 mmol/L (98-107); Cholesterol 212 mg/dL (<200); Estimated GFR 95.54 (mL/min/1.73m2); Glucose 93 mg/dL (74-106); HDL Cholesterol 43 mg/dL (40-60); Potassium 4.5 mmol/L (3.5-5.1); Sodium 140 mmol/L (136-145); TSH 0.82 uIU/Ml (0.36-3.74); Total Protein 7.4 g/dL (6.4-8.2); Triglyceride 145 mg/dL (<150)
[2024-05-14 21:07] LABS: Hemoglobin A1C 5.2 % (<5.7)
== END 2024-05-14 18:12 | disposition home or self-care (01) ==
LOC: NCHCN 18:11
PROVIDERS: PCP Student in an Organized Health Care Education/Training Program; Visit Provider Student in an Organized Health Care Education/Training Program
DX: R63.5 Abnormal weight gain (principal); Z13.220 Encounter for screening for lipoid disorders
CPT/HCPCS: 80053; 80061; 83036; 84443; 85025